=== PATIENT | male | born 1980 | race Caucasian/White ===

== ENCOUNTER 2020-05-17 08:49 | Outpatient (REF) | payer OTHER, SELFPAY ==
[2020-05-17 11:17] LABS: Hematocrit 40.5 % (42-52); Hemoglobin 13.5 g/dl (14.0-18.0); Mean Corpuscular HGB Conc 33.3 g/dl (31.0-36.0); Mean Corpuscular Hemoglobin 31.4 pg (27.0-33.0); Mean Corpuscular Volume 94.2 fL (80-98); Mean Platelet Volume 10.6 fL (9.4-12.4); Platelet Count 232 X10*3/uL (160-400); Red Cell Distribution Width 11.9 % (11.0-16.0); White Blood Count 5.1 X10*3/uL (4.8-10.8)
[2020-05-17 12:07] LABS: Folate 15.2 ng/mL (> or = 4.0); Vitamin B12 563 pg/mL (200-900)
[2020-05-17 12:11] LABS: Free T4 (Free Thyroxine) 1.17 ng/dL (0.71-1.85); Thyroid Stimulating Hormone 0.98 mIU/mL (0.32-4.0)
[2020-05-17 12:20] LABS: Alanine Aminotransferase 38 U/L (0-40); Albumin Level 4.6 g/dL (3.5-5.0); Alkaline Phosphatase 38 U/L (39-117); Anion Gap 15 (12-20); Aspartate Amino Transferase 19 U/L (5-37); Bilirubin Total 0.6 mg/dL (0.0-1.0); Blood Urea Nitrogen 17 mg/dL (9-16); Calcium 9.3 mg/dL (8.4-10.2); Carbon Dioxide 26 mmol/L (22-29); Chloride 99 mmol/L (96-108); Cholesterol 191 mg/dL; Estimated Glomerular Filt Rate > 60; Glucose Fasting 301 mg/dL (60-99); HDL Cholesterol 57 mg/dL; Iron 111 mcg/dL (45-160); LDL Cholesterol Calculated 71 mg/dl; Percent Iron Saturation 31 % (15-50); Potassium 4.8 mmol/l (3.3-5.1); Sodium 135 mmol/L (135-145); Total Iron Binding Capacity 357 mcg/dL (228-428); Total Protein 7.3 g/dL (6.5-8.0); Triglycerides 317 mg/dL; Unsaturated Iron Binding 246 ug/dL
== END 2020-05-17 08:50 | disposition home or self-care (01) ==
LOC: HO.HMGCLDS 08:49
PROVIDERS: PCP Internal Medicine; Visit Provider Internal Medicine
DX: E03.9 Hypothyroidism, unspecified (principal); E78.5 Hyperlipidemia, unspecified; I10 Essential (primary) hypertension; R73.9 Hyperglycemia, unspecified; D64.9 Anemia, unspecified
CPT/HCPCS: 36415; 80053; 80061; 82607; 82746; 83540; 84439; 84443; 85027

== ENCOUNTER 2020-10-05 08:38 | Outpatient (REF) | payer OTHER, SELFPAY ==
--- NOTE | ~2020-10-05 | US_ITS ---
EXAMINATION: US THYROID CLINICAL INFORMATION: Unspecified hypothyroidism. Patient states previous thyroid surgery 20 years ago. COMPARISON: None TECHNIQUE: Linear transducer grayscale and color Doppler examination with attention to the region of the thyroid. FINDINGS: SIZE: Measurements of the thyroid lobes and nodules are given in sagittal, anteroposterior and transverse dimensions respectively. Right Thyroid Lobe versus residual tissue: 0.8 x 0.6 x 0.7 cm, volume 0.2 mL. Parenchyma: The gland echotexture is homogeneous. Thyroid vascularity is normal. Left Thyroid Lobe: 2.3 x 0.9 x 0.9 cm, volume 1.2 mL. Parenchyma: The gland echotexture is homogeneous. Thyroid vascularity is normal. Isthmus: Not seen. Estimated total number of nodules greater than or equal to 1 cm: 0. NODES: There is a right level 2 submandibular lymph node. This is enlarged measuring 2 cm in transverse dimension. This demonstrates normal ultrasound morphology and flow. US/US thyroid IMPRESSION: Question post right thyroidectomy with small amount of residual thyroid tissue seen in the surgical bed. Small left lobe. Enlarged right level 2 submandibular lymph node.
--- NOTE | ~2020-10-05 | XR_ITS ---
EXAMINATION: XR KNEE, LEFT CLINICAL INFORMATION: Pain COMPARISON: None TECHNIQUE: Four views of the left knee. FINDINGS: Bones and soft tissues are normal. No fracture or joint effusion. Alignment is anatomic. Joint spaces are well maintained. No abnormal soft tissue calcification. XR/XR knee LT 4V IMPRESSION: Normal left knee.
== END 2020-10-05 08:39 | disposition home or self-care (01) ==
LOC: HO.HMGCX 08:38
PROVIDERS: PCP Internal Medicine; Visit Provider Internal Medicine
DX: E03.9 Hypothyroidism, unspecified (principal)
CPT/HCPCS: 73564; 76536

== ENCOUNTER 2020-12-22 07:35 | Outpatient (REF) | payer OTHER, SELFPAY ==
[2020-12-22 11:35] LABS: MANUAL DIFF FLAG NO
[2020-12-22 11:48] LABS: Basophils Percent Auto 0.4 % (0-2); Eosinophils Absolute Auto 0.1 X10*3/uL (0.0-0.4); Hemoglobin 12.7 g/dl (14.0-18.0); Imm Gran Abs Auto 0.01 X10*3/uL (0.00-0.03); Imm Gran Pct Auto 0.2 % (0.0-0.4); Lymphocytes Absolute Auto 1.5 X10*3/uL (1.2-4.9); Lymphocytes Percent Auto 32.8 % (20-40); Mean Corpuscular HGB Conc 32.6 g/dl (31.0-36.0); Mean Corpuscular Hemoglobin 30.6 pg (27.0-33.0); Mean Platelet Volume 10.3 fL (9.4-12.4); Monocytes Absolute Auto 0.4 X10*3/uL (0.1-1.2); Monocytes Percent Auto 8.5 % (2-11); Neutrophils Absolute Auto 2.5 X10*3/uL (2.0-8.3); Neutrophils Percent Auto 56.1 % (45-73); Platelet Count 208 X10*3/uL (160-400); Red Blood Count 4.15 X10*6/uL (4.60-5.80); Red Cell Distribution Width 12.3 % (11.0-16.0); White Blood Count 4.5 X10*3/uL (4.8-10.8)
[2020-12-22 12:00] LABS: Estimated Average Glucose 146 mg/dL; Hemoglobin A1c % 6.7 %
[2020-12-22 12:19] LABS: TSH reflex Free T4 1.48 uIU/mL (0.32-4.0)
[2020-12-22 12:23] LABS: Alanine Aminotransferase 42 U/L (0-40); Albumin Level 4.5 g/dL (3.5-5.0); Alkaline Phosphatase 37 U/L (39-117); Anion Gap 16 (12-20); Aspartate Amino Transferase 28 U/L (5-37); Bilirubin Total 0.8 mg/dL (0.0-1.0); Blood Urea Nitrogen 19 mg/dL (9-16); Calcium 9.6 mg/dL (8.4-10.2); Carbon Dioxide 26 mmol/L (22-29); Chloride 102 mmol/L (96-108); Cholesterol 202 mg/dL; Estimated Glomerular Filt Rate > 60; Glucose Fasting 167 mg/dL (60-99); HDL Cholesterol 67 mg/dL; LDL Cholesterol Calculated 90 mg/dl; Potassium 4.6 mmol/L (3.3-5.1); Sodium 139 mmol/L (135-145); Total Protein 7.2 g/dL (6.5-8.0); Triglycerides 225 mg/dL
[2020-12-23 17:51] LABS: Thyroid Peroxidase Antibodies 21 IU/mL (<9)
== END 2020-12-22 07:36 | disposition home or self-care (01) ==
LOC: HO.HMGCLDS 07:35
PROVIDERS: PCP Internal Medicine; Visit Provider Internal Medicine
DX: D64.9 Anemia, unspecified (principal); R73.9 Hyperglycemia, unspecified; E03.9 Hypothyroidism, unspecified; E78.5 Hyperlipidemia, unspecified; I10 Essential (primary) hypertension
CPT/HCPCS: 36415; 80053; 80061; 83036; 84443; 85025; 86376

== ENCOUNTER 2021-03-30 08:31 | Outpatient (REF) | payer OTHER, SELFPAY ==
[2021-03-30 11:47] LABS: Estimated Average Glucose 146 mg/dL; Hemoglobin A1c % 6.7 %
[2021-03-30 11:50] LABS: Alanine Aminotransferase 28 U/L (0-40); Albumin Level 4.8 g/dL (3.5-5.0); Alkaline Phosphatase 35 U/L (39-117); Anion Gap 13 (12-20); Aspartate Amino Transferase 20 U/L (5-37); Bilirubin Total 0.8 mg/dL (0.0-1.0); Blood Urea Nitrogen 21 mg/dL (9-16); Carbon Dioxide 26 mmol/L (22-29); Chloride 103 mmol/L (96-108); Cholesterol 182 mg/dL; Estimated Glomerular Filt Rate > 60; Glucose Fasting 161 mg/dL (60-99); HDL Cholesterol 59 mg/dL; LDL Cholesterol Calculated 95 mg/dl; Potassium 4.8 mmol/L (3.3-5.1); Sodium 137 mmol/L (135-145); Total Protein 7.5 g/dL (6.5-8.0); Triglycerides 141 mg/dL
== END 2021-03-30 08:32 | disposition home or self-care (01) ==
LOC: HO.HMGCLDS 08:31
PROVIDERS: PCP Internal Medicine; Visit Provider Internal Medicine
DX: E03.9 Hypothyroidism, unspecified (principal); E11.9 Type 2 diabetes mellitus without complications; I10 Essential (primary) hypertension
CPT/HCPCS: 36415; 80053; 80061; 83036

== ENCOUNTER 2021-04-07 09:13 | Outpatient (REF) | payer OTHER, SELFPAY | END 2021-04-07 09:14 | disposition home or self-care (01) | LOC: HO.HMGCLDS 09:13 | PROVIDERS: PCP Internal Medicine; Visit Provider Internal Medicine | DX: Z20.822 Contact with and (suspected) exposure to COVID-19 (principal) | CPT/HCPCS: C9803; U0003; U0005 ==

== ENCOUNTER 2021-07-05 06:23 | Outpatient (REF) | payer OTHER, SELFPAY ==
[2021-07-05 12:04] LABS: Alanine Aminotransferase 25 U/L (0-40); Albumin Level 4.4 g/dL (3.5-5.0); Alkaline Phosphatase 33 U/L (39-117); Anion Gap 11 (12-20); Aspartate Amino Transferase 18 U/L (5-37); Bilirubin Total 0.5 mg/dL (0.0-1.0); Blood Urea Nitrogen 19 mg/dL (9-16); Calcium 9.2 mg/dL (8.4-10.2); Carbon Dioxide 27 mmol/L (22-29); Chloride 107 mmol/L (96-108); Cholesterol 151 mg/dL; Estimated Glomerular Filt Rate > 60; Glucose Fasting 146 mg/dL (60-99); HDL Cholesterol 61 mg/dL; LDL Cholesterol Calculated 56 mg/dl; Potassium 4.7 mmol/L (3.3-5.1); Sodium 140 mmol/L (135-145); Triglycerides 172 mg/dL
[2021-07-05 12:10] LABS: Estimated Average Glucose 143 mg/dL; Hemoglobin A1c % 6.6 %
[2021-07-05 12:12] LABS: TSH reflex Free T4 0.64 uIU/mL (0.32-4.0)
== END 2021-07-05 06:24 | disposition home or self-care (01) ==
LOC: HO.HMGCLDS 06:23
PROVIDERS: PCP Internal Medicine; Visit Provider Internal Medicine
DX: D64.9 Anemia, unspecified (principal); E03.9 Hypothyroidism, unspecified; E11.65 Type 2 diabetes mellitus with hyperglycemia
CPT/HCPCS: 36415; 80053; 80061; 83036; 84443

== ENCOUNTER 2021-08-03 08:43 | Emergency (ER) | payer OTHER, SELFPAY ==
--- NOTE | ~2021-08-03 | MR_ITS ---
EXAMINATION: MR KNEE WITHOUT CONTRAST, LEFT CLINICAL INFORMATION: Left knee pain, swelling, and limited range of motion. COMPARISON: Most recent left knee radiographs dated 08/03/2021. TECHNIQUE: MRI of the knee without contrast was performed using routine sequences on a high-field scanner. FINDINGS: MENISCI: Medial Meniscus: Bucket-handle tear of the medial meniscus extending from the anterior horn to the posterior root. Approximately 50% of the meniscal volume is displaced centrally. There is an oblique inner margin tear through the nondisplaced meniscal tissue. Lateral Meniscus: Intact LIGAMENTS: Cruciate: Intact. Collateral: Intact. EXTENSOR MECHANISM: Intact ARTICULAR CARTILAGE/BONE: Patellofemoral Compartment: Focal partial-thickness articular cartilage fissuring at the lateral patellar facet. Medial Compartment: Mild articular cartilage thinning at the medial aspect of the medial femoral condyle and medial tibial plateau. Tiny marginal osteophytes. Lateral Compartment: Normal. JOINT FLUID AND BURSAE: Small joint effusion and small Villalpando's cyst. Fluid within the adjacent fascial planes consistent with Villalpando's cyst leak or rupture. MR/MR knee LT wo con IMPRESSION: 1. Bucket-handle tear of the medial meniscus with approximately 50% of the meniscal volume displaced centrally. Oblique inner margin tear through the nondisplaced meniscal tissue. 2. Minimal patellofemoral and medial compartment arthrosis. 3. Small joint effusion and small Villalpando's cyst. Fluid within the fascial planes adjacent to the Villalpando's cyst consistent with leak or rupture.
--- NOTE | ~2021-08-03 | XR_ITS ---
EXAMINATION: XR KNEE, LEFT CLINICAL INFORMATION: Left knee pain COMPARISON: None TECHNIQUE: Four views of the left knee. FINDINGS: Bones and soft tissues are normal. No fracture or joint effusion. Alignment is anatomic. Joint spaces are well maintained. No abnormal soft tissue calcification. XR/XR knee LT 4V IMPRESSION: Unremarkable left knee.
[2021-08-03 08:57] VITALS: BP 171/102; PULSE 71; RESP 18; TEMP 36.6; O2SAT 98; BMI 26.9
--- NOTE | 2021-08-03 10:06 | ED.LOWEXIN ---
HPI - Extremity Injury (Lower) General Chief Complaint: Extremity Injury, Lower Stated Complaint: l knee swelling pain Time Seen by Provider: 08/03/21 09:26 Source: patient Mode of arrival: ambulatory Limitations: no limitations History of Present Illness HPI Narrative: 40-year-old male presents to ED for left knee pain. Patient states left knee pain since Sunday. Patient states he was dancing and felt pain immediately on the side of left knee. Patient states left knee pain on extension and flexion. Patient states also slight swelling of knee. Patient denies any calf pain, leg swelling, redness of knee, fever, chills, chest pain, or shortness of breath. Patient denies any wounds or pus discharge in left lower extremity. Patient denies any bluish black discoloration of toes. Related Data Home Medications Medication Instructions Recorded Confirmed multivitamin 1 tab PO DAILY 04/01/21 07/08/21 glucosamine HCl PO .daily 07/08/21 07/08/21 metformin 750 mg tablet,extended 750 mg PO DAILY 07/08/21 07/08/21 release 24 hr Previous Rx's Medication Instructions Recorded levothyroxine 175 mcg tablet 175 mcg PO DAILY #90 tab 09/29/20 simvastatin 40 mg tablet 40 mg PO DAILY #90 tab 12/14/20 flash glucose sensor (FreeStyle #6 ea 04/01/21 Molly 14 Day Sensor) blood sugar diagnostic (FreeStyle #100 ea 07/08/21 Lite Strips) naproxen 500 mg tablet 500 mg PO BID PRN 10 Days #20 tab 08/03/21 prednisone 20 mg tablet 40 mg PO DAILY 5 Days #10 tab 08/03/21 Allergies Allergy/AdvReac Type Severity Reaction Status Date / Time No Known Allergies Allergy Verified 07/08/21 07:36 [No Known Allergies*] Review of Systems Review of Systems: Only symptoms are left knee pain Yes all other systems are reviewed and are negative [facility] Past Medical History Medical History (Updated 08/03/21 @ 10:28 by Tea Fernandes MD) Anemia Annual physical exam DM type 2 (diabetes mellitus, type 2) Dyslipidemia Hyperglycemia Hypothyroidism Knee pain Left knee injury Surgical History History of tooth extraction Family History Family History Father Diabetes mellitus Mother Medical history non-contributory Brother No problems noted. Sister No problems noted. Daughter No problems noted. Daughter No problems noted. Social History Social History Housing: House Alcohol intake: current Alcohol intake frequency: a few times a month Patient Tobacco Use Status: Current everyday Tobacco user Cigarettes Per Day: 8 Years Smoked: 20 Advance Directives: No Advance Directives Information Provided: No service: No Current occupational status: employed Physical Exam Vital Signs: Vital Signs: Last Vital Signs Temp 98 F 08/03/21 08:57 Pulse 71 08/03/21 08:57 Resp 18 08/03/21 08:57 BP 171/102 H 08/03/21 08:57 Pulse Ox 98 08/03/21 08:57 BMI result Body Mass Index 26.9 Const: General: cooperative, healthy appearing, comfortable, no acute distress and well developed Orientation/consciousness: oriented to time and patient oriented x3 HENMT: Head: Yes normal to inspection, Yes No palpable skull fracture present, Yes normocephalic and No atraumatic Eyes: General: appearance normal, both eyes and all related structures Neck: Neck: Yes normal visual inspection, Yes full ROM, Yes no lymphadenopathy, Yes no meningeal signs, Yes trachea midline, Yes supple, No anterior neck swelling and No tender Chest: Chest palpation & inspection: normal inspection of the chest and normal palpation of entire chest wall Resp: Effort & Inspection: normal respiratory effort and able to speak in complete sentences Auscultation: clear to auscultation bilaterally Cardio: Jugular venous distension: no JVD Heart sounds: S1 normal heart sound present and S2 normal heart sound present GI: Inspection: Yes normal to inspection and No abdominal wall ecchymosis Palpation (GI): Soft to palpation, not firm, nontender and no guarding : General: No CVA tenderness and Yes no CVA tenderness Back/Spine/Pelvis: Back: no CVA tenderness, No CVA tenderness and No back tenderness Skin: General skin exam: no rashes or lesions noted and elasticity normal Neuro: General: oriented to time, patient oriented x3, gait normal, no meningeal signs and CN's II-XI intact bilaterally Extrem: General: Yes normal to inspection and Yes full ROM Knee images: 1. Positive for tenderness on palpation. Patient has complete range of motion of knee but with pain on flexion and extension. Negative for any erythema, warmth, deformity, ecchymosis, or coolness. Popliteal pulses intact. Pedal pulses intact. Motor/neuro/vascular exam intact. Rest of left lower extremity normal. Negative for any dipping quadriceps to indicate tear Psych: Appearance: grossly normal, well kempt and not disheveled Course Course Course Narrative: Patient sent for left knee x-ray Reevaluation(s) Reevaluation #1: Knee x-ray negative for any fracture, dislocation, or joint effusion. Patient educated he might have meniscus versus ligament injury and will need MRI from primary care provider. Patient already has his own crutches. Patient placed in Mike wrap only discharged with NSAIDs and steroids. Patient most likely hypertensive due to pain. patient negatvie for any neuro deficits or cardiac compliant. Patient informed to follow up with PCP in regards to blood pressure. Time: 10:11 MDM - Extremity Injury (Lower) MDM Narrative Medical decision making narrative: Knee sprain Discharge Plan Discharge Clinical Impression: Knee sprain Patient Disposition: Home, Self-Care Instructions: Knee Sprain (ED) Additional Instructions: you're x-rays came back normal and negative for any fracture, dislocation, or fluid in the knee. Most likely you injured a ligament versus meniscus. You need MRI by primary care for provider and there is no improvement in pain. Return to the ED for any knee swelling, redness, warmth, difficulty ambulating, fever, chills, bluish black discoloration of toes, hotness, coolness, red streaks, calf pain, chest pain, shortness of breath,or any other concerning symptoms. Prescriptions: New prednisone 20 mg tablet 40 mg PO DAILY 5 Days Qty: 10 RF: 0 naproxen 500 mg tablet 500 mg PO BID PRN (Reason: pain) 10 Days Qty: 20 RF: 0 No Action levothyroxine 175 mcg tablet 175 mcg PO DAILY Qty: 90 RF: 3 simvastatin 40 mg tablet 40 mg PO DAILY Qty: 90 RF: 3 multivitamin Tablet 1 tab PO DAILY RF: 0 (DME) FreeStyle Molly 14 Day Sensor Kit See Rx Instructions .ROUTE .MEDSUPPLY Qty: 6 RF: 3 metformin 750 mg tablet extended release 24 hr 750 mg PO DAILY RF: 0 glucosamine HCl PO .daily RF: 0 (DME) FreeStyle Lite Strips Strip See Rx Instructions .Route Qty: 100 RF: 2 Stand Alone Forms: Work/School Release Print Language: Honduran
== END 2021-08-03 10:26 | disposition home or self-care (01) ==
PROVIDERS: Emergency Provider Emergency Medicine; PCP Internal Medicine
DX: S83.92XA Sprain of unspecified site of left knee, initial encounter (principal); X50.1XXA Overexertion from prolonged static or awkward postures, initial encounter; M25.562 Pain in left knee; E11.9 Type 2 diabetes mellitus without complications; E78.5 Hyperlipidemia, unspecified; F17.200 Nicotine dependence, unspecified, uncomplicated; Y93.41 Activity, dancing; Y92.9 Unspecified place or not applicable; Y99.9 Unspecified external cause status; Z79.02 Long term (current) use of antithrombotics/antiplatelets
CPT/HCPCS: 73564; 73721; 99282; 99283; 99285

== ENCOUNTER → 2021-08-24 08:05 | Outpatient (BNVA) | payer OTHER, SELFPAY | PROVIDERS: PCP Internal Medicine; Visit Provider Physician Assistant | DX: S83.242A Other tear of medial meniscus, current injury, left knee, initial encounter (principal); M17.12 Unilateral primary osteoarthritis, left knee | CPT/HCPCS: 20610; J1020 ==

== ENCOUNTER 2021-09-07 07:48 | Outpatient (RCR) | payer OTHER, SELFPAY ==
--- NOTE | 2021-09-07 09:41 | MHC.PT.EP ---
[facility] [place] Office [place] Office [place] Office [address] [phone] F: [phone] F: [phone] F: [phone] F: [phone] Physical Therapy Plan of Care Date of Evaluation: Date of Surgery: n/a Diagnosis: L knee OA Assessment: Patient is a 41 year old R handed male who presents with s/s consistent with pain L knee OA, MRI confirms meniscal tear. He works with daily job demands including house remodeling. Patient past medical history includes pre-diabetic. Current impairments include pain, ROM, strength, activity tolerance and functional mobility. Functional limitations include decreased ability to perform weight bearing activities and kneeling. Patient is motivated with good rehab potential. Skilled PT will address impairments and functional limitations in order to achieve goals. Frequency and Duration: The patient will be seen 1x/week for 6 weeks Short Term Goals: I with HEP -2 weeks Pain with ADLs - 2/10 - 3 weeks Assisted Goals: Pain with ADLs and work -0/10 - 6 weeks Full pain free AROM - 6 weeks Strength in knees and hips 4+/5 - 6 weeks Treatment Plan: Modalities to reduce pain, spasms and effusion. Manual therapy to restore motion and function. Therapeutic exercise to improve strength and flexibility. Neuromuscular re-education for posture and balance. Therapeutic activities to return to functional activities of daily living. Electronically signed by: Castillo Diane, PT Please sign and return to therapist. Thank you for your referral.
--- NOTE | 2022-04-13 08:48 | MHC.PT.DC ---
[facility] [place] Office [place] Office [place] Office [address] Hernadez [address] [facility] [phone] F: [phone] F: [phone] F: [phone] F: [phone] Physical Therapy Discharge Report Diagnosis: L knee OA Date of Surgery: n/a Date of Evaluation: 09/07/21 Date of Discharge: 09/26/21 Treatments to Date: 1 Cancellations to Date: No Shows to Date: Discharge Status: Patient Elected to Stop Discharge Summary: Pt did not return. Patient is a 41 year old R handed male who presents with s/s consistent with pain L knee OA, MRI confirms meniscal tear. He works with daily job demands including house remodeling. Patient past medical history includes pre-diabetic. Current impairments include pain, ROM, strength, activity tolerance and functional mobility. Functional limitations include decreased ability to perform weight bearing activities and kneeling. Patient is motivated with good rehab potential. Skilled PT will address impairments and functional limitations in order to achieve goals. Electronically signed by: Castillo Diane, PT Please sign and return to therapist. Thank you for your referral.
== END 2022-04-13 08:48 | disposition home or self-care (01) ==
LOC: HO.PTCHIC 07:48
PROVIDERS: PCP Internal Medicine; Visit Provider Physician Assistant
DX: S83.242A Other tear of medial meniscus, current injury, left knee, initial encounter (principal); M17.12 Unilateral primary osteoarthritis, left knee
CPT/HCPCS: 97110; 97161

== ENCOUNTER → 2021-10-06 15:46 | Outpatient (BNVA) | payer OTHER, SELFPAY | PROVIDERS: PCP Internal Medicine; Visit Provider Orthopaedic Surgery | DX: Z13.89 Encounter for screening for other disorder (principal) ==

== ENCOUNTER 2022-01-13 07:29 | Outpatient (REF) | payer OTHER, SELFPAY ==
[2022-01-13 11:35] LABS: Alanine Aminotransferase 19 U/L (0-40); Albumin Level 4.5 g/dL (3.5-5.0); Alkaline Phosphatase 33 U/L (39-117); Anion Gap 11 (12-20); Aspartate Amino Transferase 15 U/L (5-37); Bilirubin Total 0.4 mg/dL (0.0-1.0); Blood Urea Nitrogen 21 mg/dL (9-16); Calcium 9.1 mg/dL (8.4-10.2); Carbon Dioxide 25 mmol/L (22-29); Chloride 104 mmol/L (96-108); Cholesterol 161 mg/dL; Estimated Glomerular Filt Rate > 60; Glucose Fasting 172 mg/dL (60-99); HDL Cholesterol 58 mg/dL; LDL Cholesterol Calculated 80 mg/dl; Potassium 4.4 mmol/L (3.3-5.1); Sodium 136 mmol/L (135-145); Triglycerides 115 mg/dL
[2022-01-13 12:04] LABS: Estimated Average Glucose 160 mg/dL; Hemoglobin A1c % 7.2 %
== END 2022-01-13 07:30 | disposition home or self-care (01) ==
LOC: HO.HMGCLDS 07:29
PROVIDERS: Visit Provider Internal Medicine
DX: E03.9 Hypothyroidism, unspecified (principal); E78.5 Hyperlipidemia, unspecified; I10 Essential (primary) hypertension; R73.9 Hyperglycemia, unspecified
CPT/HCPCS: 36415; 80053; 80061; 83036

== ENCOUNTER 2022-01-20 07:27 | Outpatient (REF) | payer OTHER, SELFPAY ==
[2022-01-20 11:57] LABS: Creatinine Urine 114.14 mg/dL; Microalbum/Creatinine Ratio Ur 5.2 ug/mg cr
== END 2022-01-20 07:28 | disposition home or self-care (01) ==
LOC: HO.HMGCLNP 07:27
PROVIDERS: Visit Provider Internal Medicine
DX: E11.9 Type 2 diabetes mellitus without complications (principal)
CPT/HCPCS: 82043

== ENCOUNTER 2022-06-07 07:28 | Outpatient (REF) | payer OTHER, SELFPAY ==
[2022-06-07 11:51] LABS: Estimated Average Glucose 140 mg/dL; Hemoglobin A1c % 6.5 %
[2022-06-07 12:15] LABS: Alanine Aminotransferase 21 U/L (0-40); Albumin Level 4.6 g/dL (3.5-5.0); Alkaline Phosphatase 31 U/L (39-117); Anion Gap 15 (12-20); Aspartate Amino Transferase 16 U/L (5-37); Bilirubin Total 0.6 mg/dL (0.0-1.0); Blood Urea Nitrogen 20 mg/dL (9-16); Calcium 9.7 mg/dL (8.4-10.2); Carbon Dioxide 26 mmol/L (22-29); Chloride 102 mmol/L (96-108); Cholesterol 171 mg/dL; Estimated Glomerular Filt Rate > 60; Glucose Fasting 151 mg/dL (60-99); HDL Cholesterol 66 mg/dL; LDL Cholesterol Calculated 91 mg/dl; Potassium 4.7 mmol/L (3.3-5.1); Sodium 138 mmol/L (135-145); TSH reflex Free T4 0.47 uIU/mL (0.32-4.0); Triglycerides 73 mg/dL
== END 2022-06-07 07:29 | disposition home or self-care (01) ==
LOC: HO.HMGCLDS 07:28
PROVIDERS: PCP Internal Medicine; Visit Provider Internal Medicine
DX: Z00.00 Encounter for general adult medical examination without abnormal findings (principal); E03.9 Hypothyroidism, unspecified; E11.9 Type 2 diabetes mellitus without complications
CPT/HCPCS: 36415; 80053; 80061; 83036; 84443

== ENCOUNTER 2022-06-08 09:52 | Outpatient (REF) | payer OTHER, SELFPAY ==
[2022-06-08 10:32] LABS: Creatinine Urine 135.65 mg/dL; Microalbum/Creatinine Ratio Ur 3.6 ug/mg cr
== END 2022-06-08 09:53 | disposition home or self-care (01) ==
LOC: HO.LNP 09:52
PROVIDERS: Visit Provider Internal Medicine
DX: Z00.00 Encounter for general adult medical examination without abnormal findings (principal); E03.9 Hypothyroidism, unspecified; E11.9 Type 2 diabetes mellitus without complications
CPT/HCPCS: 82043

== ENCOUNTER 2022-09-07 06:36 | Outpatient (REF) | payer OTHER, SELFPAY ==
[2022-09-07 11:47] LABS: Estimated Average Glucose 148 mg/dL; Hemoglobin A1c % 6.8 %
[2022-09-07 12:08] LABS: Alanine Aminotransferase 24 U/L (0-40); Albumin Level 4.5 g/dL (3.5-5.0); Alkaline Phosphatase 30 U/L (39-117); Anion Gap 17 (12-20); Aspartate Amino Transferase 16 U/L (5-37); Blood Urea Nitrogen 21 mg/dL (9-16); Calcium 9.2 mg/dL (8.4-10.2); Carbon Dioxide 23 mmol/L (22-29); Chloride 104 mmol/L (96-108); Cholesterol 143 mg/dL; Estimated Glomerular Filt Rate > 60; Glucose Fasting 161 mg/dL (60-99); HDL Cholesterol 65 mg/dL; LDL Cholesterol Calculated 52 mg/dl; Potassium 4.6 mmol/L (3.3-5.1); Sodium 139 mmol/L (135-145); Total Protein 6.7 g/dL (6.5-8.0); Triglycerides 132 mg/dL
== END 2022-09-07 06:37 | disposition home or self-care (01) ==
LOC: HO.HMGCLDS 06:36
PROVIDERS: PCP Internal Medicine; Visit Provider Internal Medicine
DX: E03.9 Hypothyroidism, unspecified (principal); E11.9 Type 2 diabetes mellitus without complications; E78.5 Hyperlipidemia, unspecified
CPT/HCPCS: 36415; 80053; 80061; 83036

== ENCOUNTER 2022-09-08 08:16 | Outpatient (REF) | payer OTHER, SELFPAY ==
[2022-09-08 12:42] LABS: Creatinine Urine 96.41 mg/dL; Microalbumin Urine < 5.0 mg/L
== END 2022-09-08 08:17 | disposition home or self-care (01) ==
LOC: HO.HMGCLDS 08:16
PROVIDERS: PCP Internal Medicine; Visit Provider Internal Medicine
DX: E03.9 Hypothyroidism, unspecified (principal); E11.9 Type 2 diabetes mellitus without complications; E78.5 Hyperlipidemia, unspecified
CPT/HCPCS: 82043

== ENCOUNTER 2022-09-08 09:00 | Outpatient (REF) | payer OTHER, SELFPAY ==
[2022-09-08 12:48] LABS: Insulin 5 uU/mL (2-29)
[2022-09-10 18:04] LABS: C Peptide 1.58 ng/mL (0.80-3.85)
[2022-09-20 02:53] LABS: Insulin Auto Antibody <0.4 U/mL (<0.4)
== END 2022-09-08 09:01 | disposition home or self-care (01) ==
LOC: HO.HMGCLDS 09:00
PROVIDERS: PCP Internal Medicine; Visit Provider Internal Medicine
DX: E78.5 Hyperlipidemia, unspecified (principal); E11.9 Type 2 diabetes mellitus without complications
CPT/HCPCS: 36415; 83525; 84681; 86337

== ENCOUNTER 2022-12-05 06:44 | Outpatient (REF) | payer OTHER, SELFPAY ==
[2022-12-05 11:10] LABS: MANUAL DIFF FLAG NO
[2022-12-05 11:34] LABS: Basophils Percent Auto 0.8 % (0-2); Eosinophils Absolute Auto 0.1 X10*3/uL (0.0-0.4); Eosinophils Percent Auto 2.7 % (0-4); Hematocrit 42.5 % (42.0-52.0); Imm Gran Abs Auto 0.01 X10*3/uL (0.00-0.03); Imm Gran Pct Auto 0.2 % (0.0-0.4); Lymphocytes Absolute Auto 1.7 X10*3/uL (1.2-4.9); Lymphocytes Percent Auto 33.7 % (20-40); Mean Corpuscular HGB Conc 32.9 g/dl (31.0-36.0); Mean Corpuscular Hemoglobin 30.1 pg (27.0-33.0); Mean Corpuscular Volume 91.4 fL (80.0-98.0); Mean Platelet Volume 10.2 fL (9.4-12.4); Monocytes Absolute Auto 0.5 X10*3/uL (0.1-1.2); Neutrophils Absolute Auto 2.8 x10*3/uL (2.0-8.3); Neutrophils Percent Auto 53.6 % (45-73); Platelet Count 273 X10*3/uL (160-400); Red Blood Count 4.65 X10*6/uL (4.60-5.80); Red Cell Distribution Width 12.1 % (11.0-16.0); White Blood Count 5.1 X10*3/uL (4.8-10.8)
[2022-12-05 11:47] LABS: Estimated Average Glucose 137 mg/dL; Hemoglobin A1c % 6.4 %
[2022-12-05 12:11] LABS: Alanine Aminotransferase 18 U/L (0-40); Albumin Level 4.5 g/dL (3.5-5.0); Alkaline Phosphatase 36 U/L (39-117); Anion Gap 14 (12-20); Aspartate Amino Transferase 15 U/L (5-37); Bilirubin Total 0.8 mg/dL (0.0-1.0); Blood Urea Nitrogen 23 mg/dL (9-16); Calcium 9.7 mg/dL (8.4-10.2); Carbon Dioxide 25 mmol/L (22-29); Chloride 102 mmol/L (96-108); Cholesterol 163 mg/dL; Estimated Glomerular Filt Rate > 60; Glucose Fasting 155 mg/dL (60-99); HDL Cholesterol 65 mg/dL; LDL Cholesterol Calculated 68 mg/dl; Potassium 5.1 mmol/L (3.3-5.1); Sodium 136 mmol/L (135-145); Triglycerides 154 mg/dL
== END 2022-12-05 06:45 | disposition home or self-care (01) ==
LOC: HO.HMGCLDS 06:44
PROVIDERS: PCP Internal Medicine; Visit Provider Internal Medicine
DX: E03.9 Hypothyroidism, unspecified (principal); E11.9 Type 2 diabetes mellitus without complications; E78.5 Hyperlipidemia, unspecified
CPT/HCPCS: 36415; 80053; 80061; 83036; 85025

== ENCOUNTER 2023-02-06 08:28 | Outpatient (AMB) | payer OTHER, SELFPAY ==
--- NOTE | 2023-02-06 08:35 | A.OFFVIS_ITS ---
Intake VS Expanded 02/06/23 08:48 02/07/23 13:30 Height 5 ft 7 in 5 ft 7 in Weight 154 lb 12.232 oz 155 lb BMI 24.2 24.3 Intake Visit Reasons: DM2 Allergies No Known Allergies [No Known Allergies*] Allergy (Verified 12/06/22 08:36) HPI Nutrition Presentation Details Pt presents for MNT for T2DM. Pt was referred by Dr. Fernandes, primary care physician. Pt reports gradually working on weight loss , more so in the last couple of years after DM dx about 2 yrs ago. Pt reports his was 205 lbs in 2000. Keeps physically active at work on his feet Reports working on reducing food portions and cutting out sugars from beverages. Pt expresses having fasting BG at 150-180s and reports this is most likely related to having late dinner 7-8 pm Reports not having set meals throughout the day B/L: coffee 1pm sandwich (poultry/pork, breaded fried foods), water 7-8 pm dinner meat /vegetable/potatoes , water , tea and unsweetened tea fish: once/wk fruits: 2+ (pineapple/cherries/watermelon) milk/yogurt: once/day or in shakes non starchy veg : at dinner majority of the time smoke: cig 10 + etoh: occ 2 + dx with DM at around 2020 in 2000 - was 205 lbs OQT-Pfwdmwj-St.Jeor Equation Height 5 ft 7 in Weight 155 lb Resting Metabolic Rate 1554.51 Calculated Activity Level Moderate Activity Calories Needed to Maintain Weight 2409.49 Diagnosis Nutrition problem #1 food nutri know defi As related to (etiology) #1 diagnosis As evidenced by (sign/symptom) #1 knowledge deficit of diet Monitoring/Goals Nutrition problem monitoring level of knowledge/skill Nutrition goal/outcome list 3 diab diet goals Learning/Education Readiness to learn good Most Recent Diabetes Results: Microalb/Creat Ratio TNP 09/08/22 Cholesterol 163 mg/dL 12/05/22 HDL Cholesterol 65 mg/dL 12/05/22 Triglycerides 154 mg/dL 12/05/22 Creatinine 0.80 mg/dL (0.5-1.4) 12/05/22 Blood Urea Nitrogen 23 mg/dL (9-16) H 12/05/22 Sodium 136 mmol/L (135-145) 12/05/22 Potassium 5.1 mmol/L (3.3-5.1) 12/05/22 Chloride 102 mmol/L (96-108) 12/05/22 Carbon Dioxide 25 mmol/L (22-29) 12/05/22 Calcium 9.7 mg/dL (8.4-10.2) 12/05/22 AST 15 U/L (5-37) 12/05/22 ALT 18 U/L (0-40) 12/05/22 Total Protein 7.0 g/dL (6.5-8.0) 12/05/22 Albumin 4.5 g/dL (3.5-5.0) 12/05/22 [facility] Medical History Anemia Annual physical exam DM type 2 (diabetes mellitus, type 2) Dyslipidemia Hyperglycemia Hypothyroidism Knee pain Left knee injury Medial meniscus tear Surgical History History of tooth extraction Family History Father Diabetes mellitus Mother Medical history non-contributory Brother No problems noted. Sister No problems noted. Daughter No problems noted. Daughter No problems noted. Social History Housing: House Alcohol intake: current Alcohol intake frequency: a few times a month Patient Tobacco Use Status: Current everyday Tobacco user Cigarettes Per Day: 8 Years Smoked: 20 e-Cigarette/Vaping Use: Never Used service: No Current occupational status: employed Current occupation: Rt handed Cognitive needs: No Hearing needs: No Vision needs: No Assessment & Plan Assessment & Plan (1) DM type 2 (diabetes mellitus, type 2): Code(s): E11.9 - Type 2 diabetes mellitus without complications Plan: wt: 70 kg Est kcal needs as per MSJ: 2400 (40% carb, 30% protein/fat) Est fluid needs as per 25-30 ml/d: 1760 Est prot per day as per 1 g/kg bw: 70 Recommend fiber intake : 8-10 g per day and gradually increase to 35-38 g for men or as tolerated Recommend sodium intake per day : less than 2000 mg Educated patient on: ( R = reviewed V = verbalizes understanding N/R = needs review N/A = not applicable * Food sources of carbohydrate, adequate serving sizes and its role in various health conditions: R * Differences between complex carbohydrates a simple carbohydrates, role of fiber in diet: R * Differences between types of fats and role in diet (mono on saturated fat fatty acids, saturated fatty acids, trans fats): R * Food sources of sodium in salt and healthy modifications for heart health in kidney health: R * Vitamins and minerals: R * Healthy plate method concept: R * Physical activity: Benefits a precaution: R * Hypoglycemia protocol (rule of 15): R * Dietary prevention of Hyperglycemia: R Patient Instructions: Have pre dinner snack consisting of at least 30 g carb and 2 servings of protein Reduce on portion of starch by 15 g carbs less (1/2 c potatoes/ 1/3 c rice or pasta) at dinner Coding Level of Care Code Nutr Indiv Intake (32396) Diagnoses DM type 2 (diabetes mellitus, type 2) E11.9
[2023-02-06 08:48] VITALS: BMI 24.2
[2023-02-07 13:30] VITALS: BMI 24.3
== END 2023-02-06 09:18 | disposition home or self-care (01) ==
PROVIDERS: PCP Internal Medicine; Visit Provider Dietitian, Registered
DX: E11.9 Type 2 diabetes mellitus without complications (principal)

== ENCOUNTER → 2023-02-06 08:28 | Outpatient (BNVA) | payer OTHER, SELFPAY | PROVIDERS: Visit Provider Dietitian, Registered | DX: E11.9 Type 2 diabetes mellitus without complications (principal); Z71.3 Dietary counseling and surveillance | CPT/HCPCS: 97802 ==

== ENCOUNTER 2023-04-16 07:53 | Outpatient (REF) | payer OTHER, SELFPAY ==
[2023-04-16 12:01] LABS: MANUAL DIFF FLAG NO
[2023-04-16 12:14] LABS: Estimated Average Glucose 151 mg/dL; Hemoglobin A1c % 6.9 % (<6.0)
[2023-04-16 12:16] LABS: Basophils Percent Auto 0.5 % (0-2); Eosinophils Absolute Auto 0.1 X10*3/uL (0.0-0.4); Eosinophils Percent Auto 2.2 % (0-4); Hematocrit 42.8 % (42.0-52.0); Hemoglobin 14.2 g/dl (14.0-18.0); Imm Gran Abs Auto 0.03 X10*3/uL (0.00-0.03); Imm Gran Pct Auto 0.7 % (0.0-0.4); Lymphocytes Absolute Auto 1.4 X10*3/uL (1.2-4.9); Lymphocytes Percent Auto 32.8 % (20-40); Mean Corpuscular HGB Conc 33.2 g/dl (31.0-36.0); Mean Corpuscular Hemoglobin 31.2 pg (27.0-33.0); Mean Corpuscular Volume 94.1 fL (80.0-98.0); Mean Platelet Volume 10.3 fL (9.4-12.4); Monocytes Absolute Auto 0.4 X10*3/uL (0.1-1.2); Monocytes Percent Auto 8.5 % (2-11); Neutrophils Absolute Auto 2.3 x10*3/uL (2.0-8.3); Neutrophils Percent Auto 55.3 % (45-73); Platelet Count 227 X10*3/uL (160-400); Red Blood Count 4.55 X10*6/uL (4.60-5.80); Red Cell Distribution Width 11.9 % (11.0-16.0); White Blood Count 4.1 X10*3/uL (4.8-10.8)
[2023-04-16 12:54] LABS: Alanine Aminotransferase 15 U/L (0-40); Albumin Level 4.4 g/dL (3.5-5.0); Alkaline Phosphatase 29 U/L (39-117); Anion Gap 12 (12-20); Aspartate Amino Transferase 14 U/L (5-37); Bilirubin Total 0.5 mg/dL (0.0-1.0); Blood Urea Nitrogen 17 mg/dL (9-16); Calcium 9.4 mg/dL (8.4-10.2); Carbon Dioxide 25 mmol/L (22-29); Chloride 104 mmol/L (96-108); Cholesterol 182 mg/dL (<200); Estimated Glomerular Filt Rate > 60; Glucose Fasting 164 mg/dL (60-99); HDL Cholesterol 74 mg/dL (>40); LDL Cholesterol Calculated 88 mg/dL (<100); Potassium 4.3 mmol/L (3.3-5.1); Sodium 137 mmol/L (135-145); Total Protein 6.9 g/dL (6.5-8.0); Triglycerides 103 mg/dL (<150)
[2023-04-16 13:12] LABS: TSH reflex Free T4 1.91 uIU/mL (0.32-4.0)
[2023-04-25 19:44] LABS: Insulin Auto Antibody <0.4 U/mL (<0.4)
== END 2023-04-16 07:54 | disposition home or self-care (01) ==
LOC: HO.HMGCLDS 07:53
PROVIDERS: PCP Internal Medicine; Visit Provider Internal Medicine
DX: E11.65 Type 2 diabetes mellitus with hyperglycemia (principal); E78.5 Hyperlipidemia, unspecified; E03.9 Hypothyroidism, unspecified
CPT/HCPCS: 36415; 80053; 80061; 83036; 84443; 85025; 86337

== ENCOUNTER 2023-04-17 07:34 | Outpatient (AMB) | payer OTHER, SELFPAY ==
--- NOTE | 2023-04-17 07:41 | MHC.PC.OV ---
Vital Signs 04/17/23 07:42 Height 5 ft 7 in Weight 165 lb BMI 25.8 BP 120/78 Blood Pressure Location Rt brachial Position Sitting Pulse 64 Pulse Source Pulse Oximeter Pulse Oximetry (%) 98 Oxygen Delivery Method Room Air Intake Visit Reasons: PE Allergies No Known Allergies [No Known Allergies*] Allergy (Verified 04/17/23 07:43) Medication List - Last Reconciled 04/17/23 by Tea Fernandes MD blood sugar diagnostic (FreeStyle Lite Strips) test blood sugar twice a day dapagliflozin propanediol (Farxiga) 5 mg PO DAILY flash glucose sensor (FreeStyle Molly 14 Day Sensor kit) As directed levothyroxine 175 mcg PO DAILY metformin 1,000 mg PO BID multivitamin 1 tab PO DAILY simvastatin 10 mg PO DAILY Tobacco use date assessed: 04/17/23 Dental Screening Dental Screen Date: 04/17/23 Did you have a dental visit in the last 12 months?: Yes Did you have a dental problem in the last 6 months where you did not have access to dental care?: No Was dental information given to patient?: Patient has dentist HPI PE HPI Details Patient presents for physical. He reports persistently elevated fasting blood glucose between 120-140. Patient is mainly 1 meal a day around 18:00. Usually skips lunch and has a sandwich or protein bar in the midday. Patient denies hypoglycemia. [facility] Medical History Medial meniscus tear Left knee injury DM type 2 (diabetes mellitus, type 2) Annual physical exam Knee pain Anemia Hyperglycemia Dyslipidemia Hypothyroidism Surgical History History of tooth extraction Family History Father Diabetes mellitus Mother Medical history non-contributory Brother No problems noted. Sister No problems noted. Daughter No problems noted. Daughter No problems noted. Social History Housing: House Alcohol intake: current Alcohol intake frequency: a few times a month Patient Tobacco Use Status: Current everyday Tobacco user Cigarettes Per Day: 8 Years Smoked: 20 e-Cigarette/Vaping Use: Never Used service: No Current occupational status: employed Current occupation: [employer] handed Cognitive needs: No Hearing needs: No Vision needs: No Questionnaire PHQ-9 Over the last 2 weeks, how often have you been bothered by any of the following problems? 1. Little interest or pleasure in doing things: not at all 2. Feeling down, depressed, or hopeless: not at all 3. Trouble falling or staying asleep, or sleeping too much: not at all 4. Feeling tired or having little energy: not at all 5. Poor appetite or overeating: not at all 6. Feeling bad about yourself - or that you are a failure or have let yourself or your family down: not at all 7. Trouble concentrating on things, such as reading the newspaper or watching television: not at all 8. Moving or speaking so slowly that other people could have noticed. Or the opposite - being so fidgety or restless that you have been moving around a lot more than usual: not at all 9. Thoughts that you would be better off or of hurting yourself in some way: not at all Total score: 0 Depression Screening Interpretation: Negative Source: Developed by Drs. Se Hsieh, Whitley Hernandez, Berny Shelton and colleagues, with an educational christy from [email or web address]. Thrive Questionnaire Date Thrive assessed: 04/17/23 I am a: Patient What is your living situation today?: I have a steady place to live Within the past 12 months, did the food you bought not last and you didn't have the money to get more?: Never true Within the past 12 months, did you worry whether your food would run out before you got money to buy more?: Never true Do you have trouble paying for medicines?: No Do you have trouble getting transportation to medical appointments?: No Do you have trouble paying your heating and electricity bill?: No Do you have trouble taking care of your child, family member or friend?: No Do you have trouble with day-to-day activities such as bathing, preparing meals, shopping, managing finances, etc.?: No Are you currently unemployed and looking for a job?: No Are you interested in more education?: No Please select the resources that you would like help with: None Currently or been in a relationship where the following occur: no concerns reported DICKSON-7 AMB Questionnaire DICKSON-7 Date DICKSON - 7 assessed: 04/17/23 Feeling nervous, anxious, or on edge: 0 = Not at all Not being able to stop or control worryin = Not at all Worrying too much about different things: 0 = Not at all Trouble relaxin = Not at all Being so restless that it is hard to sit still: 0 = Not at all Becoming easily annoyed or irritable: 0 = Not at all Feeling afraid as if something awful might happen: 0 = Not at all Total DICKSON-7 score (0-4 normal; 5-9 mild; 10-14 moderate; 15-21 severe): 0 Source: Developed by Drs. Se Hsieh, Whitley Hernandez, eBrny Shelton and colleagues, with an educational christy from [email or web address]. Review of Systems Const All systems reviewed & are unremarkable except as noted in HPI and below Reports no additional complaints Eyes Reports no additional complaints ENT Reports no additional complaints Card Reports no additional complaints Resp Reports no additional complaints GI Reports no additional complaints Reports no additional complaints Physical exam (Primary Care) Vital Signs: Last Vital Signs Pulse 64 04/17/23 07:42 BP 120/78 04/17/23 07:42 Pulse Ox 98 04/17/23 07:42 Oxygen Delivery Method Room Air 04/17/23 07:42 BMI result Body Mass Index 25.8 Tobacco/Smoking Status: Tobacco use Status Tobacco use date assessed 04/17/23 04/17/23 07:45 Patient Tobacco Use Status Current everyday Tobacco 04/17/23 07:45 e-Cigarette/Vaping Use Never Used 04/17/23 07:45 PHQ-9: PHQ-9 Score PHQ-9: Total score 0 04/17/23 08:45 Depression Screening Interpretation: Negative Thrive Assessment: Date of Thrive Assessment Date Thrive assessed 04/17/23 04/17/23 08:23 Currently or been in a relationship where the following occur: no concerns reported Const General: no acute distress HENMT Ears: hearing grossly normal bilaterally General nose exam: Normal external nose present Face and sinus: Yes normal facial exam Throat: Yes posterior oropharynx normal Eyes General: appearance normal, both eyes and all related structures Neck Neck: Yes no lymphadenopathy and Yes supple Resp Effort & Inspection: normal respiratory effort Auscultation: clear to auscultation bilaterally Cardio Rhythm: regular rhythm Heart sounds: S1 normal heart sound present and S2 normal heart sound present GI Inspection: Yes normal to inspection Palpation (GI): Soft to palpation Percussion: Yes normal to percussion Auscultation: normal bowel sounds Extrem Other: Monofilament foot exam intact bilaterally General: Yes no clubbing, cyanosis or edema Assessment and Plan Assessment & Plan (1) Heart murmur: Code(s): R01.1 - Cardiac murmur, unspecified Plan: check Echo (2) DM type 2 (diabetes mellitus, type 2): Comment: Trulicity caused weight loss and nausea Code(s): E11.9 - Type 2 diabetes mellitus without complications Plan: A1c is 6.9, ADA diet eating regular meals increasing protein and unsaturated fat intake discussed. Farxiga will be increased to 10 mg a day and patient will continue metformin. He will follow-up in 4 months with a fasting labs before (3) Annual physical exam: Code(s): Z00.00 - Encounter for general adult medical examination without abnormal findings Plan: Well-balanced diet regular physical activity discussed with the patient. Colonoscopy was discussed but patient would like to postpone until next year (4) Hypothyroidism: Comment: s/p partial thyroidectomy for thyroid nodule in 20's Code(s): E03.9 - Hypothyroidism, unspecified Plan: Continue levothyroxine Orders: Orders CA echo transthoracic complete Today E11.9 - Type 2 diabetes mellitus without complications, R01.1 - Cardiac murmur, unspecified, R73.9 - Hyperglycemia, unspecified Hemoglobin A1c 3 Months E11.9 - Type 2 diabetes mellitus without complications, R73.9 - Hyperglycemia, unspecified Lipid Panel 3 Months E11.9 - Type 2 diabetes mellitus without complications, R73.9 - Hyperglycemia, unspecified Comprehensive [place]. Panel Fast 3 Months E11.9 - Type 2 diabetes mellitus without complications, R73.9 - Hyperglycemia, unspecified Microalbumin, Random (w Creat) 3 Months E11.9 - Type 2 diabetes mellitus without complications, R73.9 - Hyperglycemia, unspecified Medications: New dapagliflozin propanediol (Farxiga) 10 mg PO DAILY 90 tabs 2RF Discontinued dapagliflozin propanediol (Farxiga) Discontinued Reason: Doctor's Order 5 mg PO DAILY 90 tabs 0RF Coding Level of Care Code Est Pt Prev Care 40-64y(39688) Diagnoses Heart murmur R01.1 DM type 2 (diabetes mellitus, type 2) E11.9 Annual physical exam Z00.00 Hypothyroidism E03.9
[2023-04-17 07:42] VITALS: BP 120/78; PULSE 64; O2SAT 98; BMI 25.8
== END 2023-04-17 08:48 | disposition home or self-care (01) ==
PROVIDERS: PCP Internal Medicine; Visit Provider Internal Medicine
DX: R01.1 Cardiac murmur, unspecified (principal); E11.9 Type 2 diabetes mellitus without complications; Z00.00 Encounter for general adult medical examination without abnormal findings; E03.9 Hypothyroidism, unspecified
CPT/HCPCS: 99396

== ENCOUNTER → 2023-05-16 08:19 | Outpatient (REF) | payer OTHER, SELFPAY ==
--- NOTE | 2023-05-16 08:27 | CA_ITS ---
Transthoracic Echocardiogram Patient (Last, First, Middle): Justin Theodore, Gender: Male Date of : 1980 Age: 42 Procedure Date: 05/16/2023 Procedure Type: Transthoracic Echocardiogram Location: OP Height: 172.72 cm Weight: 72.58 kg BSA: 1.86 m2 Heart Rate: bpm BP: 125 / 88 mmHg Community Relations Officer: HARPREET Referring MD: Tea Fernandes MD [facility]: Venkata Goodrich MD Symptoms: R01.1 - Cardiac murmur, unspecified Study Quality: Good ECG Rhythm: Sinus Conclusions: - Essentially normal study Findings Left Ventricle Normal left ventricular size, thickness, and systolic function. The visually estimated ejection fraction is between 60-65%. Diastolic function is normal for age. Peak GLS is -20.1%, within normal limits. Right Ventricle Normal right ventricular cavity size and systolic function. Atria Both atria are normal in size. Interatrial shunt cannot be excluded. Aortic Valve Normal aortic valve structure and function. There is no aortic valve stenosis. There is no aortic valve regurgitation. Mitral Valve Normal mitral valve structure and function. There is trace mitral valve regurgitation. There is no mitral valve stenosis. Pulmonic Valve The pulmonic valve is likely normal. There is mild pulmonic valve regurgitation. Tricuspid Valve Normal tricuspid valve structure. There is trace tricuspid valve regurgitation. The right ventricular systolic pressure is normal. The right ventricular systolic pressure is 28 mmHg. Normal right atrial pressure. There is no evidence of pulmonary hypertension. Great Vessels All visible segments of the aorta are normal in size. The pulmonary artery was not well visualized. Venous The inferior vena cava is normal in size and collapses greater than 50% with inspiration. Pericardium/Pleural There is no evidence of pericardial effusion. Prior Study Comparison no previous study in the last 5 years for comparison Measurements 2D Linear Measurements IVSd: 1.10 0.6-0.9/0.6-1.0 cm LVIDd: 4.70 3.9-5.3/4.2-5.9 cm LVIDd Index: 2.53 2.4-3.2/2.2-3.1 cm/m2 LVIDs: 2.80 2.0-3.6 cm LVPWd: 0.90 0.7-1.1 cm LA Diam: 3.50 2.7-3.8/3.0-4.0 cm LAIDs Index: 1.88 1.5-2.3 cm/m2 LV Mass: 204.82 67-162/88-224 g LV Mass Index: 110.12 43-95/49-115 g/m2 LVOT Diam: 2.30 3.0+(-)1.3 cm 2D Systolic Function EF 4C: 62.40 >55% EF 2C: 68.10 >55% EF BiP: 65.20 >55% Mitral Valve MV Pk E: 0.93 MV PK A: 0.58 MV Decel Time: 278.00 E/A: 1.60 E'Lateral: 14.30 E'Medial: 8.27 E/E' Med: 11.20 E/E' Lat: 6.50 PHT: 82.00 MVA PHT: 2.68 Decel [place]: 3.34 Aortic Valve AoV Pk [place]: 1.19 AoV Mn [place]: 0.85 AoV VTI: 0.31 AoV Pk Grad: 6.00 Aov Mn Grad: 3.00 EDNA Cont.VTI: 2.49 LVOT LVOT Pk [place]: 0.81 LVOT Mn [place]: 0.53 LVOT VTI: 0.18 LVOT Pk Grad: 3.00 LVOT Mn Grad: 1.00 LVOT Diam: 2.30 LVOT Area: 4.15 Diastolic Function MV Pk E: 0.93 MV Pk A: 0.58 E/A: 1.60 E'Medial: 8.27 E/E' Med: 11.20 E' Laterial: 14.30 E/E' Lat: 6.50 Right Ventricle TAPSE (mm): 20.70 TVS' Kwaku: 10.20 Tricuspid Valve TR Pk [place]: 1.81 TR Pk Grad: 13.00 RA Press: 15.00 RVSP: 28.00 Great Vessels Aorta Sinus of Valsalva: 4.00 2.0-3.[address] [place]: 2.70 1.7-3.4 cm Ao Asc: 3.50 2.1-3.4 cm Updated in Other Vendor System with Status of Final Venkata Goodrich MD electronically signed on 05/16/2023 3:43:19 PM with status of Final
== END ==
LOC: HO.CARD 08:19
PROVIDERS: PCP Internal Medicine; Visit Provider Internal Medicine
DX: R01.1 Cardiac murmur, unspecified (principal); E11.65 Type 2 diabetes mellitus with hyperglycemia
CPT/HCPCS: 93306

== ENCOUNTER → 2023-05-16 08:27 | Outpatient (BNV) | payer OTHER, SELFPAY | PROVIDERS: PCP Internal Medicine; Visit Provider Internal Medicine Cardiovascular Disease | DX: I37.1 Nonrheumatic pulmonary valve insufficiency (principal); R01.1 Cardiac murmur, unspecified | CPT/HCPCS: 93306 ==

== ENCOUNTER 2023-07-25 06:51 | Outpatient (REF) | payer OTHER, SELFPAY ==
[2023-07-25 12:29] LABS: Estimated Average Glucose 183 mg/dL
[2023-07-25 13:00] LABS: Alanine Aminotransferase 22 U/L (0-40); Albumin Level 4.6 g/dL (3.5-5.0); Alkaline Phosphatase 33 U/L (39-117); Anion Gap 10 (12-20); Aspartate Amino Transferase 19 U/L (5-37); Bilirubin Total 0.3 mg/dL (0.0-1.0); Blood Urea Nitrogen 23 mg/dL (9-16); Calcium 9.6 mg/dL (8.4-10.2); Carbon Dioxide 25 mmol/L (22-29); Chloride 107 mmol/L (96-108); Cholesterol 174 mg/dL (<200); Estimated Glomerular Filt Rate > 60; Glucose Fasting 145 mg/dL (60-99); HDL Cholesterol 54 mg/dL (>40); LDL Cholesterol Calculated 48 mg/dL (<100); Potassium 4.6 mmol/L (3.3-5.1); Sodium 137 mmol/L (135-145); Total Protein 7.1 g/dL (6.5-8.0); Triglycerides 360 mg/dL (<150)
== END 2023-07-25 06:52 | disposition home or self-care (01) ==
LOC: HO.HMGCLDS 06:51
PROVIDERS: PCP Internal Medicine; Visit Provider Internal Medicine
DX: E11.65 Type 2 diabetes mellitus with hyperglycemia (principal)
CPT/HCPCS: 36415; 80053; 80061; 83036

== ENCOUNTER 2023-07-26 09:53 | Outpatient (AMB) | payer OTHER, SELFPAY ==
[2023-07-26 09:55] VITALS: BP 120/76; PULSE 80; O2SAT 99; BMI 24.3
--- NOTE | 2023-07-26 09:55 | MHC.PC.OV ---
Vital Signs 07/26/23 09:55 Height 5 ft 7 in Weight 155 lb BMI 24.3 BP 120/76 Blood Pressure Location Rt brachial Position Sitting Pulse 80 Pulse Source Pulse Oximeter Pulse Oximetry (%) 99 Oxygen Delivery Method Room Air Intake Visit Reasons: 3 month follow up Intake Note: Pt is here today for 3 months follow up visit. Allergies dulaglutide [From [facility]] Adverse Reaction (Verified 10/23/23 07:45) weight loss Medication List - Last Reconciled 07/26/23 by Tea Fernandes MD blood sugar diagnostic (FreeStyle Lite Strips) test blood sugar twice a day dapagliflozin propanediol (Farxiga) 10 mg PO DAILY flash glucose sensor (FreeStyle Molly 14 Day Sensor kit) As directed insulin degludec (Tresiba FlexTouch U-100 insulin) 6 units (0.06 mL) subcut DAILY levothyroxine 175 mcg PO DAILY metformin 500 mg PO BID multivitamin 1 tab PO DAILY simvastatin 10 mg PO DAILY Tobacco use date assessed: 07/26/23 Dental Screening Dental Screen Date: 07/26/23 Did you have a dental visit in the last 12 months?: Yes Did you have a dental problem in the last 6 months where you did not have access to dental care?: No Was dental information given to patient?: Patient has dentist HPI 3 month follow up HPI Details Patient presents for the follow-up of type 2 diabetes. She lost 10 lb after starting Farxiga on stopped about a month ago but noticed increased fasting blood glucose to over 200. Patient has been eating 2 meals a day and generally avoiding simple carbohydrates. Patient denies hypoglycemia episodes and is physically active working in construction. [facility] Medical History Medial meniscus tear Left knee injury DM type 2 (diabetes mellitus, type 2) Annual physical exam Knee pain Anemia Dyslipidemia Hypothyroidism Surgical History History of tooth extraction Family History Father Diabetes mellitus Mother Medical history non-contributory Brother No problems noted. Sister No problems noted. Daughter No problems noted. Daughter No problems noted. Social History Housing: House Alcohol intake: current Alcohol intake frequency: a few times a month Patient Tobacco Use Status: Current everyday Tobacco user Cigarettes Per Day: 8 Years Smoked: 20 e-Cigarette/Vaping Use: Never Used service: No Current occupational status: employed Current occupation: [employer] handed Cognitive needs: No Hearing needs: No Vision needs: No Questionnaire PHQ-9 Over the last 2 weeks, how often have you been bothered by any of the following problems? 1. Little interest or pleasure in doing things: not at all 2. Feeling down, depressed, or hopeless: not at all 3. Trouble falling or staying asleep, or sleeping too much: not at all 4. Feeling tired or having little energy: not at all 5. Poor appetite or overeating: not at all 6. Feeling bad about yourself - or that you are a failure or have let yourself or your family down: not at all 7. Trouble concentrating on things, such as reading the newspaper or watching television: not at all 8. Moving or speaking so slowly that other people could have noticed. Or the opposite - being so fidgety or restless that you have been moving around a lot more than usual: not at all 9. Thoughts that you would be better off or of hurting yourself in some way: not at all Total score: 0 Depression Screening Interpretation: Negative Depression Screening Done: Yes Source: Developed by Drs. Se Hsieh, Whitley Hernandez, Berny Shelton and colleagues, with an educational christy from [employer]. Thrive Questionnaire Date Thrive assessed: 07/26/23 I am a: Patient What is your living situation today?: I have a steady place to live Within the past 12 months, did the food you bought not last and you didn't have the money to get more?: Never true Within the past 12 months, did you worry whether your food would run out before you got money to buy more?: Never true Do you have trouble paying for medicines?: No Do you have trouble getting transportation to medical appointments?: No Do you have trouble paying your heating and electricity bill?: No Do you have trouble taking care of your child, family member or friend?: No Do you have trouble with day-to-day activities such as bathing, preparing meals, shopping, managing finances, etc.?: No Are you currently unemployed and looking for a job?: No Are you interested in more education?: No Please select the resources that you would like help with: None Currently or been in a relationship where the following occur: no concerns reported AUDIT C Alcohol Use Questionnaire (AUDIT-C) 1. How often do you have a drink containing alcohol?: Monthly or less 2. How many drinks containing alcohol do you have on a typical day when you are drinking?: 1 or 2 3. How often do you have six or more drinks on one occasion?: Never Total Score: 1 DICKSON-7 AMB Questionnaire DICKSON-7 Date DICKSON - 7 assessed: 07/26/23 Feeling nervous, anxious, or on edge: 0 = Not at all Not being able to stop or control worryin = Not at all Worrying too much about different things: 0 = Not at all Trouble relaxin = Not at all Being so restless that it is hard to sit still: 0 = Not at all Becoming easily annoyed or irritable: 0 = Not at all Feeling afraid as if something awful might happen: 0 = Not at all Total DICKSON-7 score (0-4 normal; 5-9 mild; 10-14 moderate; 15-21 severe): 0 Source: Developed by Drs. Se Hsieh, Whitley Hernandez, Berny Shelton and colleagues, with an educational christy from [employer]. Review of Systems Const All systems reviewed & are unremarkable except as noted in HPI and below Reports no additional complaints Eyes Reports no additional complaints ENT Reports no additional complaints Card Reports no additional complaints Resp Reports no additional complaints GI Reports no additional complaints Reports no additional complaints Musc Reports no additional complaints Physical exam (Primary Care) Vital Signs: Last Vital Signs Pulse 80 07/26/23 09:55 BP 120/76 07/26/23 09:55 Pulse Ox 99 07/26/23 09:55 Oxygen Delivery Method Room Air 07/26/23 09:55 BMI result Body Mass Index 24.3 Tobacco/Smoking Status: Tobacco use Status Tobacco use date assessed 07/26/23 07/26/23 10:00 Patient Tobacco Use Status Current everyday Tobacco 07/26/23 10:00 e-Cigarette/Vaping Use Never Used 07/26/23 10:00 PHQ-9: PHQ-9 Score PHQ-9: Total score 0 07/26/23 12:38 Depression Screening Interpretation: Negative Thrive Assessment: Date of Thrive Assessment Date Thrive assessed 07/26/23 07/26/23 12:38 Currently or been in a relationship where the following occur: no concerns reported Const General: no acute distress HENMT Head: Yes normal to inspection Eyes General: appearance normal, both eyes and all related structures Resp Effort & Inspection: normal respiratory effort Auscultation: clear to auscultation bilaterally Cardio Rhythm: regular rhythm Heart sounds: S1 normal heart sound present and S2 normal heart sound present Assessment and Plan Assessment & Plan (1) DM type 2 (diabetes mellitus, type 2): Comment: Trulicity caused weight loss and nausea Code(s): E11.9 - Type 2 diabetes mellitus without complications Plan: A1c is high at 8.0, ADA diet regular physical activity discussed with the patient. 6 units of Tresiba will be started in the morning. Patient was advised to decrease metformin to 500 mg twice a day and continue Farxiga. He was advised to monitor glucose at least 3 times a day. Patient will follow-up in 1 month (2) Hypothyroidism: Comment: s/p partial thyroidectomy for thyroid nodule in ' Code(s): E03.9 - Hypothyroidism, unspecified Plan: Continue levothyroxine (3) Dyslipidemia: Code(s): E78.5 - Hyperlipidemia, unspecified Plan: cont statin Medications: New insulin degludec (Tresiba FlexTouch U-100 insulin) 6 units (0.06 mL) subcut DAILY 15 mL 3RF metformin 500 mg PO BID 180 tabs 0RF FreeStyle Molly 3 Sensor (blood-glucose sensor) 1 TID 2 ea 3RF NS BD Ultra-Fine Cleo Pen Needle (pen needle, diabetic) 1 qd 100 ea 1RF NS Discontinued flash glucose sensor Discontinued Reason: Doctor's Order As directed 6 ea 3RF metformin Discontinued Reason: Doctor's Order 1,000 mg PO BID 180 tabs 2RF Coding Level of Care Code Est Pt Level 4 (93055) Diagnoses DM type 2 (diabetes mellitus, type 2) E11.9 Hypothyroidism E03.9 Dyslipidemia E78.5
== END 2023-07-26 16:24 | disposition home or self-care (01) ==
PROVIDERS: PCP Internal Medicine; Visit Provider Internal Medicine
DX: E11.9 Type 2 diabetes mellitus without complications (principal); E03.9 Hypothyroidism, unspecified; E78.5 Hyperlipidemia, unspecified
CPT/HCPCS: 99214

== ENCOUNTER 2023-07-26 13:28 | Outpatient (REF) | payer OTHER, SELFPAY | END 2023-07-26 13:29 | disposition home or self-care (01) | LOC: HO.HMGCLNP 13:28 | PROVIDERS: Visit Provider Internal Medicine | DX: E11.9 Type 2 diabetes mellitus without complications (principal); E78.5 Hyperlipidemia, unspecified | CPT/HCPCS: 82043; 82570 ==

== ENCOUNTER 2023-09-11 07:47 | Outpatient (AMB) | payer OTHER, SELFPAY ==
--- NOTE | 2023-09-11 07:49 | MHC.PC.OV ---
Vital Signs 09/11/23 07:50 Height 5 ft 7 in Weight 157 lb BMI 24.6 BP 114/76 Blood Pressure Location Lt brachial Position Sitting Pulse 74 Pulse Source Pulse Oximeter Pulse Oximetry (%) 95 Oxygen Delivery Method Room Air Intake Visit Reasons: 1 Month follow up Intake Note: Pt is here today for 1 month follow up visit. Allergies dulaglutide [From [facility]] Adverse Reaction (Verified 09/11/23 07:52) weight loss Medication List - Last Reconciled 09/11/23 by Tea Fernandes MD BD Ultra-Fine Mini Pen Needle (pen needle, diabetic) As directed to inject insulin once a day NS BD Ultra-Fine Cleo Pen Needle (pen needle, diabetic) As directed to inject insulin once a day NS blood sugar diagnostic (FreeStyle Lite Strips) test blood sugar twice a day blood-glucose sensor ([employer] G7 Sensor device) As directed dapagliflozin propanediol (Farxiga) 10 mg PO DAILY FreeStyle Molly 3 Sensor (blood-glucose sensor) 1 TID NS Lantus Solostar U-100 Insulin (insulin glargine) 14 units (0.14 mL) subcut QPM NS levothyroxine 175 mcg PO DAILY metformin 500 mg PO BID multivitamin 1 tab PO DAILY simvastatin 10 mg PO DAILY Tobacco use date assessed: 07/26/23 Dental Screening Dental Screen Date: 09/11/23 Did you have a dental visit in the last 12 months?: Yes Did you have a dental problem in the last 6 months where you did not have access to dental care?: No Was dental information given to patient?: Patient has dentist HPI 1 Month follow up HPI Details Patient presents for the follow-up of type 2 diabetes. Patient reports improved glucose readings between 100-150 occasionally higher in the morning. He has been taking 10 units of Lantus and denies hypoglycemia. Patient has been compliant with [facility] Medical History Medial meniscus tear Left knee injury DM type 2 (diabetes mellitus, type 2) Annual physical exam Knee pain Anemia Dyslipidemia Hypothyroidism Surgical History History of tooth extraction Family History Father Diabetes mellitus Mother Medical history non-contributory Brother No problems noted. Sister No problems noted. Daughter No problems noted. Daughter No problems noted. Social History Housing: House Alcohol intake: current Alcohol intake frequency: a few times a month Patient Tobacco Use Status: Current everyday Tobacco user Cigarettes Per Day: 8 Years Smoked: 20 e-Cigarette/Vaping Use: Never Used service: No Current occupational status: employed Current occupation: [employer]t handed Cognitive needs: No Hearing needs: No Vision needs: No Questionnaire Thrive Questionnaire Date Thrive assessed: 07/26/23 AUDIT C Alcohol Use Questionnaire (AUDIT-C) 1. How often do you have a drink containing alcohol?: Monthly or less 2. How many drinks containing alcohol do you have on a typical day when you are drinking?: 1 or 2 3. How often do you have six or more drinks on one occasion?: Never Total Score: 1 DICKSON-7 AMB Questionnaire DICKSON-7 Date DICKSON - 7 assessed: 07/26/23 Source: Developed by Drs. Se Hsieh, Whitley Hernandez, Berny Shelton and colleagues, with an educational christy from [employer]. Review of Systems Const All systems reviewed & are unremarkable except as noted in HPI and below Reports no additional complaints Eyes Reports no additional complaints ENT Reports no additional complaints Card Reports no additional complaints Resp Reports no additional complaints Physical exam (Primary Care) Vital Signs: Last Vital Signs Pulse 74 09/11/23 07:50 BP 114/76 09/11/23 07:50 Pulse Ox 95 09/11/23 07:50 Oxygen Delivery Method Room Air 09/11/23 07:50 BMI result Body Mass Index 24.6 Tobacco/Smoking Status: Tobacco use Status Tobacco use date assessed 07/26/23 09/11/23 07:50 Patient Tobacco Use Status Current everyday Tobacco 09/11/23 07:50 e-Cigarette/Vaping Use Never Used 09/11/23 07:50 Thrive Assessment: Date of Thrive Assessment Date Thrive assessed 07/26/23 09/11/23 07:50 Const General: no acute distress HENMT Mouth: Normal oral and palatal mucosa present Throat: Yes posterior oropharynx normal Neck Neck: Yes no lymphadenopathy and Yes supple Resp Effort & Inspection: normal respiratory effort Auscultation: clear to auscultation bilaterally Cardio Rhythm: regular rhythm Heart sounds: S1 normal heart sound present and S2 normal heart sound present Assessment and Plan Assessment & Plan (1) DM type 2 (diabetes mellitus, type 2): Comment: Trulicity caused weight loss and nausea Code(s): E11.9 - Type 2 diabetes mellitus without complications Plan: Increase Lantus to 14 units continue metformin and Farxiga. Follow-up in 6 weeks with a fasting labs before. (2) Hypothyroidism: Comment: s/p partial thyroidectomy for thyroid nodule in 20's Code(s): E03.9 - Hypothyroidism, unspecified Plan: Continue levothyroxine (3) Dyslipidemia: Code(s): E78.5 - Hyperlipidemia, unspecified Plan: Continue simvastatin Orders: Orders Hemoglobin A1c 6 Weeks E03.9 - Hypothyroidism, unspecified, E11.9 - Type 2 diabetes mellitus without complications, E78.5 - Hyperlipidemia, unspecified, R73.9 - Hyperglycemia, unspecified TSH reflex Free T4 6 Weeks E03.9 - Hypothyroidism, unspecified, R73.9 - Hyperglycemia, unspecified Comprehensive [place]. Panel Fast 6 Weeks E03.9 - Hypothyroidism, unspecified, E11.9 - Type 2 diabetes mellitus without complications, E78.5 - Hyperlipidemia, unspecified, R73.9 - Hyperglycemia, unspecified Complete Blood Count Auto Diff 6 Weeks E03.9 - Hypothyroidism, unspecified, E11.9 - Type 2 diabetes mellitus without complications, E78.5 - Hyperlipidemia, unspecified, R73.9 - Hyperglycemia, unspecified Microalbumin, Random (w Creat) 6 Weeks E03.9 - Hypothyroidism, unspecified, E11.9 - Type 2 diabetes mellitus without complications, E78.5 - Hyperlipidemia, unspecified, R73.9 - Hyperglycemia, unspecified Lipid Panel 6 Weeks E03.9 - Hypothyroidism, unspecified, E11.9 - Type 2 diabetes mellitus without complications, E78.5 - Hyperlipidemia, unspecified, R73.9 - Hyperglycemia, unspecified Medications: Changed From Lantus Solostar U-100 Insulin (insulin glargine) 6 units (0.06 mL) subcut QPM 15 mL 4RF NS To Lantus Solostar U-100 Insulin (insulin glargine) 14 units (0.14 mL) subcut QPM 15 mL 4RF NS Coding Level of Care Code Est Pt Level 4 (70404) Diagnoses DM type 2 (diabetes mellitus, type 2) E11.9 Hypothyroidism E03.9 Dyslipidemia E78.5
[2023-09-11 07:50] VITALS: BP 114/76; PULSE 74; O2SAT 95; BMI 24.6
== END 2023-09-11 08:54 | disposition home or self-care (01) ==
PROVIDERS: PCP Internal Medicine; Visit Provider Internal Medicine
DX: E11.9 Type 2 diabetes mellitus without complications (principal); E03.9 Hypothyroidism, unspecified; E78.5 Hyperlipidemia, unspecified
CPT/HCPCS: 99214

== ENCOUNTER 2023-10-22 07:55 | Outpatient (REF) | payer OTHER, SELFPAY ==
[2023-10-22 10:14] LABS: MANUAL DIFF FLAG NO
[2023-10-22 10:26] LABS: Estimated Average Glucose 146 mg/dL; Hemoglobin A1c % 6.7 % (<6.0)
[2023-10-22 10:29] LABS: Basophils Absolute Auto 0.1 X10*3/uL (0.0-0.2); Basophils Percent Auto 1.2 % (0-2); Eosinophils Absolute Auto 0.1 X10*3/uL (0.0-0.4); Hematocrit 42.8 % (42.0-52.0); Hemoglobin 14.2 g/dl (14.0-18.0); Imm Gran Abs Auto 0.01 X10*3/uL (0.00-0.03); Imm Gran Pct Auto 0.2 % (0.0-0.4); Lymphocytes Percent Auto 50.1 % (20-40); Mean Corpuscular HGB Conc 33.2 g/dl (31.0-36.0); Mean Corpuscular Hemoglobin 30.7 pg (27.0-33.0); Mean Corpuscular Volume 92.6 fL (80.0-98.0); Monocytes Absolute Auto 0.4 X10*3/uL (0.1-1.2); Monocytes Percent Auto 9.5 % (2-11); Neutrophils Absolute Auto 1.4 x10*3/uL (2.0-8.3); Platelet Count 239 X10*3/uL (160-400); Red Blood Count 4.62 X10*6/uL (4.60-5.80); Red Cell Distribution Width 12.3 % (11.0-16.0)
[2023-10-22 10:49] LABS: Alanine Aminotransferase 35 U/L (0-40); Albumin Level 4.4 g/dL (3.5-5.0); Alkaline Phosphatase 35 U/L (39-117); Anion Gap 10 (12-20); Aspartate Amino Transferase 25 U/L (5-37); Bilirubin Total 0.5 mg/dL (0.0-1.0); Blood Urea Nitrogen 23 mg/dL (9-16); Calcium 9.4 mg/dL (8.4-10.2); Carbon Dioxide 24 mmol/L (22-29); Chloride 110 mmol/L (96-108); Cholesterol 182 mg/dL (<200); Estimated Glomerular Filt Rate > 60; Glucose Fasting 135 mg/dL (60-99); HDL Cholesterol 81 mg/dL (>40); LDL Cholesterol Calculated 90 mg/dL (<100); Potassium 4.2 mmol/L (3.3-5.1); Sodium 140 mmol/L (135-145); Triglycerides 56 mg/dL (<150)
[2023-10-22 10:53] LABS: TSH reflex Free T4 0.94 uIU/mL (0.32-4.0)
== END 2023-10-22 07:56 | disposition home or self-care (01) ==
LOC: HO.HMGCLDS 07:55
PROVIDERS: PCP Internal Medicine; Visit Provider Internal Medicine
DX: E11.65 Type 2 diabetes mellitus with hyperglycemia (principal); E03.9 Hypothyroidism, unspecified; E78.5 Hyperlipidemia, unspecified
CPT/HCPCS: 36415; 80053; 80061; 83036; 84443; 85025

== ENCOUNTER 2023-10-23 07:39 | Outpatient (AMB) | payer OTHER, SELFPAY ==
--- NOTE | 2023-10-23 07:43 | A.OFFPC_ITS ---
Vital Signs 10/23/23 07:45 Weight 156 lb BP 122/82 Blood Pressure Location Rt brachial Position Sitting Pulse 68 Pulse Source Pulse Oximeter Pulse Oximetry (%) 99 Oxygen Delivery Method Room Air Intake Visit Reasons: 6 weeks follow up DM Intake Note: Patient here for diabetes f/u. Allergies [facility] [[facility]] Adverse Reaction (Verified 10/23/23 07:45) weight loss Medication List - Last Reconciled 10/23/23 by Tea Fernandes MD BD Ultra-Fine Mini Pen Needle (pen needle, diabetic) As directed to inject insulin once a day NS BD Ultra-Fine Cleo Pen Needle (pen needle, diabetic) As directed to inject insulin once a day NS blood sugar diagnostic (FreeStyle Lite Strips) test blood sugar twice a day blood-glucose sensor ([employer] G7 Sensor device) As directed dapagliflozin propanediol (Farxiga) 10 mg PO DAILY FreeStyle Molly 3 Sensor (blood-glucose sensor) 1 TID NS Lantus Solostar U-100 Insulin (insulin glargine) 14 units (0.14 mL) subcut QPM NS levothyroxine 175 mcg PO DAILY metformin 500 mg PO BID multivitamin 1 tab PO DAILY simvastatin 10 mg PO DAILY Tobacco use date assessed: 07/26/23 Dental Screening Dental Screen Date: 09/11/23 HPI 6 weeks follow up DM HPI Details Patient presents for the follow-up of type 2 diabetes better controlled on current regimen. Patient reports fasting glucose between 120-150 and 2 hours after dinner around 160. He denies hypoglycemia. Hyperlipidemia and hypothyroidism stable on current medications. [facility] Medical History Medial meniscus tear Left knee injury DM type 2 (diabetes mellitus, type 2) Annual physical exam Knee pain Anemia Dyslipidemia Hypothyroidism Surgical History History of tooth extraction Family History Father Diabetes mellitus Mother Medical history non-contributory Brother No problems noted. Sister No problems noted. Daughter No problems noted. Daughter No problems noted. Social History Housing: House Alcohol intake: current Alcohol intake frequency: a few times a month Patient Tobacco Use Status: Current everyday Tobacco user Cigarettes Per Day: 8 Years Smoked: 20 e-Cigarette/Vaping Use: Never Used service: No Current occupational status: employed Current occupation: [employer] handed Cognitive needs: No Hearing needs: No Vision needs: No Questionnaire Thrive Questionnaire Date Thrive assessed: 07/26/23 DICKSON-7 AMB Questionnaire DICKSON-7 Date DICKSON - 7 assessed: 07/26/23 Source: Developed by Drs. Se Hsieh, Whitley Hernandez, Berny Shelton and colleagues, with an educational christy from [employer]. Review of Systems Const All systems reviewed & are unremarkable except as noted in HPI and below Reports no additional complaints Eyes Reports no additional complaints ENT Reports no additional complaints Card Reports no additional complaints Resp Reports no additional complaints GI Reports no additional complaints Reports no additional complaints Physical exam (Primary Care) Vital Signs: Last Vital Signs Pulse 68 10/23/23 07:45 BP 122/82 10/23/23 07:45 Pulse Ox 99 10/23/23 07:45 Oxygen Delivery Method Room Air 10/23/23 07:45 Tobacco/Smoking Status: Tobacco use Status Tobacco use date assessed 07/26/23 10/23/23 07:43 Patient Tobacco Use Status Current everyday Tobacco 10/23/23 07:43 e-Cigarette/Vaping Use Never Used 10/23/23 07:43 Thrive Assessment: Date of Thrive Assessment Date Thrive assessed 07/26/23 10/23/23 07:43 Const General: no acute distress HENMT Head: Yes normal to inspection Mouth: Normal oral and palatal mucosa present Resp Effort & Inspection: normal respiratory effort Auscultation: clear to auscultation bilaterally Cardio Rhythm: regular rhythm Heart sounds: S1 normal heart sound present and S2 normal heart sound present GI Inspection: Yes normal to inspection Palpation (GI): Soft to palpation Percussion: Yes normal to percussion Auscultation: normal bowel sounds Assessment and Plan Assessment & Plan (1) DM type 2 (diabetes mellitus, type 2): Comment: Trulicity caused weight loss and nausea Code(s): E11.9 - Type 2 diabetes mellitus without complications Plan: A1c is down to 6.7 from 8%, ADA diet regular physical activity discussed with the patient. He will increase Lantus from 14 to 18 units to improve over control. Patient will continue metformin and Farxiga. Follow-up in 3 months with a fasting labs before (2) Hypothyroidism: Comment: s/p partial thyroidectomy for thyroid nodule in 20's Code(s): E03.9 - Hypothyroidism, unspecified Plan: Continue Levothyroxine (3) Dyslipidemia: Code(s): E78.5 - Hyperlipidemia, unspecified Plan: Continue simvastatin and low-cholesterol diet Orders: Orders Lipid Panel 3 Months E03.9 - Hypothyroidism, unspecified, E11.9 - Type 2 diab etes mellitus without complications, E78.5 - Hyperlipidemia, unspecified Comprehensive [place]. Panel Fast 3 Months E03.9 - Hypothyroidism, unspecified, E11.9 - Type 2 diabetes mellitus without complications, E78.5 - Hyperlipidemia, unspecified Hemoglobin A1c 3 Months E03.9 - Hypothyroidism, unspecified, E11.9 - Type 2 diabetes mellitus without complications, E78.5 - Hyperlipidemia, unspecified Complete Blood Count Auto Diff 3 Months E03.9 - Hypothyroidism, unspecified, E11.9 - Type 2 diabetes mellitus without complications, E78.5 - Hyperlipidemia, unspecified Microalbumin, Random (w Creat) 3 Months E03.9 - Hypothyroidism, unspecified, E11.9 - Type 2 diabetes mellitus without complications, E78.5 - Hyperlipidemia, unspecified Medications: Changed From Lantus Solostar U-100 Insulin (insulin glargine) 14 units (0.14 mL) subcut QPM 15 mL 4RF NS To Lantus Solostar U-100 Insulin (insulin glargine) 18 units (0.18 mL) subcut QPM 15 mL 4RF NS Coding Level of Care Code Est Pt Level 4 (09976) Diagnoses DM type 2 (diabetes mellitus, type 2) E11.9 Hypothyroidism E03.9 Dyslipidemia E78.5
[2023-10-23 07:45] VITALS: BP 122/82; PULSE 68; O2SAT 99
== END 2023-10-23 10:45 | disposition home or self-care (01) ==
PROVIDERS: PCP Internal Medicine; Visit Provider Internal Medicine
DX: E11.9 Type 2 diabetes mellitus without complications (principal); E03.9 Hypothyroidism, unspecified; E78.5 Hyperlipidemia, unspecified
CPT/HCPCS: 99214

== ENCOUNTER 2024-01-28 07:35 | Outpatient (REF) | payer OTHER, SELFPAY ==
[2024-01-28 10:16] LABS: MANUAL DIFF FLAG NO
[2024-01-28 10:23] LABS: Basophils Percent Auto 0.6 % (0-2); Eosinophils Absolute Auto 0.2 X10*3/uL (0.0-0.4); Hematocrit 43.5 % (42.0-52.0); Hemoglobin 14.4 g/dl (14.0-18.0); Imm Gran Abs Auto 0.01 X10*3/uL (0.00-0.03); Imm Gran Pct Auto 0.2 % (0.0-0.4); Lymphocytes Absolute Auto 1.5 X10*3/uL (1.2-4.9); Lymphocytes Percent Auto 30.4 % (20-40); Mean Corpuscular HGB Conc 33.1 g/dl (31.0-36.0); Mean Corpuscular Hemoglobin 31.4 pg (27.0-33.0); Mean Corpuscular Volume 94.8 fL (80.0-98.0); Mean Platelet Volume 10.3 fL (9.4-12.4); Monocytes Absolute Auto 0.4 X10*3/uL (0.1-1.2); Neutrophils Absolute Auto 2.9 x10*3/uL (2.0-8.3); Neutrophils Percent Auto 57.8 % (45-73); Platelet Count 209 X10*3/uL (160-400); Red Blood Count 4.59 X10*6/uL (4.60-5.80); Red Cell Distribution Width 12.4 % (11.0-16.0)
[2024-01-28 10:31] LABS: Estimated Average Glucose 137 mg/dL; Hemoglobin A1c % 6.4 % (<6.0)
[2024-01-28 10:45] LABS: Alanine Aminotransferase 18 U/L (0-40); Albumin Level 4.5 g/dL (3.5-5.0); Alkaline Phosphatase 30 U/L (39-117); Anion Gap 12 (12-20); Aspartate Amino Transferase 16 U/L (5-37); Bilirubin Total 0.7 mg/dL (0.0-1.0); Blood Urea Nitrogen 31 mg/dL (9-16); Calcium 8.9 mg/dL (8.4-10.2); Carbon Dioxide 25 mmol/L (22-29); Chloride 106 mmol/L (96-108); Cholesterol 178 mg/dL (<200); Estimated Glomerular Filt Rate > 60; Glucose Fasting 172 mg/dL (60-99); HDL Cholesterol 69 mg/dL (>40); LDL Cholesterol Calculated 70 mg/dL (<100); Potassium 4.5 mmol/L (3.3-5.1); Sodium 138 mmol/L (135-145); Triglycerides 197 mg/dL (<150)
== END 2024-01-28 07:36 | disposition home or self-care (01) ==
LOC: HO.HMGCLDS 07:35
PROVIDERS: PCP Internal Medicine; Visit Provider Internal Medicine
DX: E11.9 Type 2 diabetes mellitus without complications (principal); E03.9 Hypothyroidism, unspecified; E78.5 Hyperlipidemia, unspecified
CPT/HCPCS: 36415; 80053; 80061; 83036; 85025

== ENCOUNTER 2024-01-29 08:02 | Outpatient (AMB) | payer OTHER, SELFPAY ==
[2024-01-29 08:09] VITALS: BP 108/74; PULSE 87; O2SAT 97; BMI 25.7
--- NOTE | 2024-01-29 08:09 | A.OFFPC_ITS ---
Vital Signs 01/29/24 08:09 Height 5 ft 7 in Weight 164 lb BMI 25.7 BP 108/74 Blood Pressure Location Rt brachial Position Sitting Pulse 87 Pulse Source Pulse Oximeter Pulse Oximetry (%) 97 Oxygen Delivery Method Room Air Intake Visit Reasons: Follow up DM Intake Note: Pt is here today for a follow up visit on DM. Allergies dulaglutide [From [facility]] Adverse Reaction (Verified 01/29/24 08:13) weight loss Medication List - Last Reconciled 01/29/24 by Tea Fernandes MD BD Ultra-Fine Mini Pen Needle (pen needle, diabetic) As directed to inject insulin once a day NS BD Ultra-Fine Cleo Pen Needle (pen needle, diabetic) As directed to inject insulin once a day NS blood sugar diagnostic (FreeStyle Lite Strips) test blood sugar twice a day blood-glucose sensor ([employer] G7 Sensor device) As directed, change every 10 days dapagliflozin propanediol (Farxiga) 10 mg PO DAILY FreeStyle Molly 3 Sensor (blood-glucose sensor) 1 TID NS Lantus Solostar U-100 Insulin (insulin glargine) 18 units (0.18 mL) subcut QPM NS levothyroxine 175 mcg PO DAILY metformin 500 mg PO BID multivitamin 1 tab PO DAILY simvastatin 10 mg PO DAILY Tobacco use date assessed: 01/29/24 Dental Screening Dental Screen Date: 09/11/23 [facility] Medical History Medial meniscus tear Left knee injury DM type 2 (diabetes mellitus, type 2) Annual physical exam Knee pain Anemia Dyslipidemia Hypothyroidism Surgical History History of tooth extraction Family History Father Diabetes mellitus Mother Medical history non-contributory Brother No problems noted. Sister No problems noted. Daughter No problems noted. Daughter No problems noted. Social History Housing: House Alcohol intake: current Alcohol intake frequency: a few times a month Patient Tobacco Use Status: Current everyday Tobacco user Cigarettes Per Day: 8 Years Smoked: 20 Packs per year/per ci.00 e-Cigarette/Vaping Use: Never Used [employer] service: No Current occupational status: employed Current occupation: [employer]t handed Cognitive needs: No Hearing needs: No Vision needs: No Questionnaire Thrive Questionnaire Date Thrive assessed: 07/26/23 DICKSON-7 AMB Questionnaire DICKSON-7 Date DICKSON - 7 assessed: 07/26/23 Source: Developed by Drs. Se Hsieh, Whitley Hernandez, Berny Shelton and colleagues, with an educational christy from [employer]. Review of Systems Const All systems reviewed & are unremarkable except as noted in HPI and below Eyes Reports no additional complaints ENT Reports no additional complaints Card Reports no additional complaints Resp Reports no additional complaints GI Reports no additional complaints Reports no additional complaints Physical exam (Primary Care) Vital Signs: Last Vital Signs Pulse 87 01/29/24 08:09 BP 108/74 01/29/24 08:09 Pulse Ox 97 01/29/24 08:09 Oxygen Delivery Method Room Air 01/29/24 08:09 BMI result Body Mass Index 25.7 Tobacco/Smoking Status: Tobacco use Status Tobacco use date assessed 01/29/24 01/29/24 08:14 Patient Tobacco Use Status Current everyday Tobacco 01/29/24 08:14 e-Cigarette/Vaping Use Never Used 01/29/24 08:14 Thrive Assessment: Date of Thrive Assessment Date Thrive assessed 07/26/23 01/29/24 08:14 Const General: no acute distress HENMT Head: Yes normal to inspection Face and sinus: Yes normal facial exam Eyes General: appearance normal, both eyes and all related structures Neck Neck: Yes supple Resp Effort & Inspection: normal respiratory effort Auscultation: clear to auscultation bilaterally Cardio Rhythm: regular rhythm Heart sounds: S1 normal heart sound present and S2 normal heart sound present GI Inspection: Yes normal to inspection Palpation (GI): Soft to palpation Percussion: Yes normal to percussion Auscultation: normal bowel sounds Assessment and Plan Assessment & Plan (1) Hypothyroidism: Comment: s/p partial thyroidectomy for thyroid nodule in 20's Code(s): E03.9 - Hypothyroidism, unspecified Plan: cont Levothyroxine (2) Dyslipidemia: Code(s): E78.5 - Hyperlipidemia, unspecified Plan: Patient will stop simvastatin continue low-cholesterol diet and check lipid profile in 3 months (3) DM type 2 (diabetes mellitus, type 2): Comment: Trulicity caused weight loss and nausea Code(s): E11.9 - Type 2 diabetes mellitus without complications Plan: A1c is 6.4, ADA diet regular exercise continue current medications discussed with the patient. Return in 3 months for physical Orders: Orders Lipid Panel 3 Months E03.9 - Hypothyroidism, unspecified, E11.9 - Type 2 diabetes mellitus without complications, E78.5 - Hyperlipidemia, unspecified Microalbumin, Random (w Creat) 3 Months E03.9 - Hypothyroidism, unspecified, E11.9 - Type 2 diabetes mellitus without complications, E78.5 - Hyperlipidemia, unspecified TSH reflex Free T4 3 Months E03.9 - Hypothyroidism, unspecified Comprehensive [place]. Panel 3 Months E03.9 - Hypothyroidism, unspecified, E11.9 - Type 2 diabetes mellitus without complications, E78.5 - Hyperlipidemia, unspecified Hemoglobin A1c 3 Months E03.9 - Hypothyroidism, unspecified, E11.9 - Type 2 diabetes mellitus without complications, E78.5 - Hyperlipidemia, unspecified Complete Blood Count Auto Diff 3 Months E03.9 - Hypothyroidism, unspecified, E11.9 - Type 2 diabetes mellitus without complications, E78.5 - Hyperlipidemia, unspecified Medications: Refilled BD Ultra-Fine Cleo Pen Needle (pen needle, diabetic) As directed to inject insulin once a day 100 ea 3RF NS E11.9 - Type 2 diabetes mellitus without complications Discontinued BD Ultra-Fine Mini Pen Needle (pen needle, diabetic) Discontinued Reason: Doctor's Order As directed to inject insulin once a day 100 ea 1RF NS E11.9 - Type 2 diabetes mellitus without complications Coding Level of Care Code Est Pt Level 4 (67382) Diagnoses Hypothyroidism E03.9 Dyslipidemia E78.5 DM type 2 (diabetes mellitus, type 2) E11.9
== END 2024-01-29 08:46 | disposition home or self-care (01) ==
LOC: HO.HMGC 08:02
PROVIDERS: PCP Internal Medicine; Visit Provider Internal Medicine
DX: E03.9 Hypothyroidism, unspecified (principal); E78.5 Hyperlipidemia, unspecified; E11.9 Type 2 diabetes mellitus without complications
CPT/HCPCS: 99214

== ENCOUNTER 2024-04-23 06:20 | Outpatient (REF) | payer OTHER, SELFPAY ==
[2024-04-23 10:05] LABS: MANUAL DIFF FLAG NO
[2024-04-23 10:08] LABS: Basophils Percent Auto 0.6 % (0-2); Eosinophils Absolute Auto 0.2 X10*3/uL (0.0-0.4); Eosinophils Percent Auto 3.1 % (0-4); Hematocrit 42.8 % (42.0-52.0); Imm Gran Abs Auto 0.01 X10*3/uL (0.00-0.03); Imm Gran Pct Auto 0.2 % (0.0-0.4); Lymphocytes Absolute Auto 1.5 X10*3/uL (1.2-4.9); Lymphocytes Percent Auto 28.9 % (20-40); Mean Corpuscular HGB Conc 32.7 g/dl (31.0-36.0); Mean Corpuscular Hemoglobin 30.8 pg (27.0-33.0); Mean Corpuscular Volume 94.1 fL (80.0-98.0); Monocytes Absolute Auto 0.4 X10*3/uL (0.1-1.2); Neutrophils Absolute Auto 3.1 x10*3/uL (2.0-8.3); Neutrophils Percent Auto 59.2 % (45-73); Platelet Count 219 X10*3/uL (160-400); Red Blood Count 4.55 X10*6/uL (4.60-5.80); Red Cell Distribution Width 12.7 % (11.0-16.0); White Blood Count 5.2 X10*3/uL (4.8-10.8)
[2024-04-23 10:26] LABS: Estimated Average Glucose 140 mg/dL; Hemoglobin A1C 167.5623 umol/L; Hemoglobin A1c % 6.5 % (<6.0)
[2024-04-23 10:39] LABS: Alanine Aminotransferase 16 U/L (0-40); Albumin Level 4.3 g/dL (3.5-5.0); Alkaline Phosphatase 29 U/L (39-117); Anion Gap 12 (12-20); Aspartate Amino Transferase 16 U/L (5-37); Bilirubin Total 0.6 mg/dL (0.0-1.0); Blood Urea Nitrogen 22 mg/dL (9-16); Calcium 9.3 mg/dL (8.4-10.2); Carbon Dioxide 26 mmol/L (22-29); Chloride 105 mmol/L (96-108); Cholesterol 229 mg/dL (<200); Estimated Glomerular Filt Rate > 60; Glucose Random 147 mg/dL (60-115); HDL Cholesterol 78 mg/dL (>40); LDL Cholesterol Calculated 130 mg/dL (<100); Potassium 4.1 mmol/L (3.3-5.1); Sodium 139 mmol/L (135-145); Total Protein 6.8 g/dL (6.5-8.0); Triglycerides 108 mg/dL (<150)
[2024-04-23 10:41] LABS: TSH reflex Free T4 1.98 uIU/mL (0.32-4.0)
== END 2024-04-23 06:21 | disposition home or self-care (01) ==
LOC: HO.HMGCLDS 06:20
PROVIDERS: PCP Internal Medicine; Visit Provider Internal Medicine
DX: E03.9 Hypothyroidism, unspecified (principal); E11.9 Type 2 diabetes mellitus without complications; E78.5 Hyperlipidemia, unspecified
CPT/HCPCS: 36415; 80053; 80061; 83036; 84443; 85025

== ENCOUNTER 2024-04-24 08:30 | Outpatient (AMB) | payer OTHER, SELFPAY ==
[2024-04-24 08:34] VITALS: BP 106/68; PULSE 77; O2SAT 95; BMI 25.8
--- NOTE | 2024-04-24 08:34 | MHC.PC.OV ---
Vital Signs 04/24/24 08:34 Height 5 ft 7 in Weight 165 lb BMI 25.8 BP 106/68 Blood Pressure Location Rt brachial Position Sitting Pulse 77 Pulse Source Pulse Oximeter Pulse Oximetry (%) 95 Oxygen Delivery Method Room Air Intake Visit Reasons: Annual PE Intake Note: Pt is here today for PE. [facility] Adverse Reaction (Verified 04/24/24 08:56) weight loss Medication List - Last Reconciled 04/24/24 by Tea Fernandes MD BD Ultra-Fine Cleo Pen Needle (pen needle, diabetic) As directed to inject insulin once a day NS blood sugar diagnostic (FreeStyle Lite Strips) test blood sugar twice a day blood-glucose sensor (Enigmatec G7 Sensor device) As directed, change every 10 days dapagliflozin propanediol (Farxiga) 10 mg PO DAILY FreeStyle Molly 3 Sensor (blood-glucose sensor) 1 TID NS Lantus Solostar U-100 Insulin (insulin glargine) 18 units (0.18 mL) subcut QPM NS levothyroxine 175 mcg PO DAILY metformin 500 mg PO BID multivitamin 1 tab PO DAILY simvastatin 10 mg PO DAILY Tobacco use date assessed: 01/29/24 Dental Screening Dental Screen Date: 04/24/24 Did you have a dental visit in the last 12 months?: Yes Did you have a dental problem in the last 6 months where you did not have access to dental care?: No Was dental information given to patient?: Patient has dentist HPI Annual PE HPI Details Pt presents for PE. [facility] [place] Medical History (Updated 04/24/24 @ 10:11 by Tea Fernandes MD) Medial meniscus tear Left knee injury DM type 2 (diabetes mellitus, type 2) Annual physical exam Knee pain Dyslipidemia Hypothyroidism Surgical History History of tooth extraction Family History Father Diabetes mellitus Mother Medical history non-contributory Brother No problems noted. Sister No problems noted. Daughter No problems noted. Daughter No problems noted. Social History Housing: House Alcohol intake: current Alcohol intake frequency: a few times a month Patient Tobacco Use Status: Current everyday Tobacco user Cigarettes Per Day: 8 Years Smoked: 20 e-Cigarette/Vaping Use: Never Used service: No Current occupational status: employed Current occupation: [employer] handed Cognitive needs: No Hearing needs: No Vision needs: No Questionnaire PHQ-9 Over the last 2 weeks, how often have you been bothered by any of the following problems? 1. Little interest or pleasure in doing things: not at all 2. Feeling down, depressed, or hopeless: not at all 3. Trouble falling or staying asleep, or sleeping too much: not at all 4. Feeling tired or having little energy: not at all 5. Poor appetite or overeating: not at all 6. Feeling bad about yourself - or that you are a failure or have let yourself or your family down: not at all 7. Trouble concentrating on things, such as reading the newspaper or watching television: not at all 8. Moving or speaking so slowly that other people could have noticed. Or the opposite - being so fidgety or restless that you have been moving around a lot more than usual: not at all 9. Thoughts that you would be better off or of hurting yourself in some way: not at all Total score: 0 Depression Screening Interpretation: Negative Depression Screening Done: Yes 49437 - PHQ-9 Billing: Yes Source: Developed by Drs. Se Hsieh, Whitley Hernandez, Berny Shelotn and colleagues, with an educational christy from [employer]. Thrive Questionnaire Date Thrive assessed: 04/24/24 I am a: Patient What is your living situation today?: I have a steady place to live Within the past 12 months, did the food you bought not last and you didn't have the money to get more?: I choose not to answer this question Within the past 12 months, did you worry whether your food would run out before you got money to buy more?: I choose not to answer this question Do you have trouble paying for medicines?: No Do you have trouble getting transportation to medical appointments?: No Do you have trouble paying your heating and electricity bill?: No Do you have trouble taking care of your child, family member or friend?: No Do you have trouble with day-to-day activities such as bathing, preparing meals, shopping, managing finances, etc.?: No Are you currently unemployed and looking for a job?: No Are you interested in more education?: No Please select the resources that you would like help with: None Currently or been in a relationship where the following occur: I choose not to answer THRIVE Score: 0 AUDIT C Alcohol Use Questionnaire (AUDIT-C) 1. How often do you have a drink containing alcohol?: 2-4 times a month 2. How many drinks containing alcohol do you have on a typical day when you are drinking?: 1 or 2 3. How often do you have six or more drinks on one occasion?: Never Total Score: 2 DICKSON-7 AMB Questionnaire DICKSON-7 Date DICKSON - 7 assessed: 04/24/24 Feeling nervous, anxious, or on edge: 0 = Not at all Not being able to stop or control worryin = Not at all Worrying too much about different things: 0 = Not at all Trouble relaxin = Not at all Being so restless that it is hard to sit still: 0 = Not at all Becoming easily annoyed or irritable: 0 = Not at all Feeling afraid as if something awful might happen: 0 = Not at all Total DICKSON-7 score (0-4 normal; 5-9 mild; 10-14 moderate; 15-21 severe): 0 Source: Developed by Drs. Se Hsieh, Whitley Hernandez, Berny Shelton and colleagues, with an educational christy from [employer]. DICKSON-7 Assessment Billing DICKSON-7 Assessment Tool: DICKSON-7 Assessment 45623 Review of Systems Const All systems reviewed & are unremarkable except as noted in HPI and below Eyes Reports no additional complaints ENT Reports no additional complaints Card Reports no additional complaints Resp Reports no additional complaints GI Reports no additional complaints Reports no additional complaints Musc Reports no additional complaints Physical exam (Primary Care) Vital Signs: Last Vital Signs Pulse 77 04/24/24 08:34 BP 106/68 04/24/24 08:34 Pulse Ox 95 04/24/24 08:34 Oxygen Delivery Method Room Air 04/24/24 08:34 BMI result Body Mass Index 25.8 Tobacco/Smoking Status: Tobacco use Status Tobacco use date assessed 01/29/24 04/24/24 08:36 Patient Tobacco Use Status Current everyday Tobacco 04/24/24 08:36 e-Cigarette/Vaping Use Never Used 04/24/24 08:36 PHQ-9: PHQ-9 Score PHQ-9: Total score 0 04/24/24 09:00 Depression Screening Interpretation: Negative Thrive Assessment: Date of Thrive Assessment Date Thrive assessed 04/24/24 04/24/24 08:36 Currently or been in a relationship where the following occur: I choose not to answer Const General: no acute distress HENMT Head: Yes normal to inspection Ears: hearing grossly normal bilaterally General nose exam: Normal external nose present Throat: Yes posterior oropharynx normal Eyes General: appearance normal, both eyes and all related structures Neck Neck: Yes no lymphadenopathy and Yes supple Resp Effort & Inspection: normal respiratory effort Auscultation: clear to auscultation bilaterally Cardio Rhythm: regular rhythm Heart sounds: S1 normal heart sound present and S2 normal heart sound present GI Inspection: Yes normal to inspection Palpation (GI): Soft to palpation Percussion: Yes normal to percussion Auscultation: normal bowel sounds Extrem Other: Diabetic foot exam skin is intact monofilament and vibration sensation intact bilaterally General: Yes no clubbing, cyanosis or edema Coding Level of Care Code Est Pt Prev Care 40-64y(53299) Diagnoses Annual physical exam Z00.00 DM type 2 (diabetes mellitus, type 2) E11.9 Hypothyroidism E03.9 Dyslipidemia E78.5 Additional Codes DICKSON-7 Assessment Billing - DICKSON-7 Assessment Tool: DICKSON-7 Assessment [id number] ([id number]) Assessment & Plan Assessment & Plan (1) Annual physical exam: Code(s): Z00.00 - Encounter for general adult medical examination without abnormal findings Category: Medical Plan: Well-balanced diet regular physical activity discussed with the patient referred to GI for colonoscopy (2) DM type 2 (diabetes mellitus, type 2): Comment: Trulicity caused weight loss and nausea Code(s): E11.9 - Type 2 diabetes mellitus without complications Category: Medical Plan: A1c is 6.5, ADA diet increase exercise discussed with the patient , continue current medications and follow-up in 4 months with a fasting labs before (3) Hypothyroidism: Comment: s/p partial thyroidectomy for thyroid nodule in 20's Code(s): E03.9 - Hypothyroidism, unspecified Category: Medical Plan: Continue Levothyroxine (4) Dyslipidemia: Code(s): E78.5 - Hyperlipidemia, unspecified Category: Medical Plan: Restart simvastatin Orders: Orders Hemoglobin A1c 4 Months E03.9 - Hypothyroidism, unspecified, E11.9 - Type 2 diabetes mellitus without complications, E78.5 - Hyperlipidemia, unspecified, Z00.00 - Encounter for general adult medical examination without abnormal findings Comprehensive [place]. Panel Fast 4 Months E03.9 - Hypothyroidism, unspecified, E11.9 - Type 2 diabetes mellitus without complications, E78.5 - Hyperlipidemia, unspecified, Z00.00 - Encounter for general adult medical examination without abnormal findings Lipid Panel 4 Months E03.9 - Hypothyroidism, unspecified, E11.9 - Type 2 diabetes mellitus without complications, E78.5 - Hyperlipidemia, unspecified, Z00.00 - Encounter for general adult medical examination without abnormal findings Complete Blood Count Auto Diff 4 Months E03.9 - Hypothyroidism, unspecified, E11.9 - Type 2 diabetes mellitus without complications, E78.5 - Hyperlipidemia, unspecified, Z00.00 - Encounter for general adult medical examination without abnormal findings Microalbumin, Random (w Creat) 4 Months E03.9 - Hypothyroidism, unspecified, E11.9 - Type 2 diabetes mellitus without complications, E78.5 - Hyperlipidemia, unspecified, Z00.00 - Encounter for general adult medical examination without abnormal findings Referrals Gastroenterology Referral E03.9 - Hypothyroidism, unspecified, E11.9 - Type 2 diabetes mellitus without complications, E78.5 - Hyperlipidemia, unspecified, Z00.00 - Encounter for general adult medical examination without abnormal findings Medications: Refilled simvastatin 10 mg PO DAILY 90 tabs 3RF
== END 2024-04-24 10:13 | disposition home or self-care (01) ==
PROVIDERS: PCP Internal Medicine; Visit Provider Internal Medicine
DX: Z00.00 Encounter for general adult medical examination without abnormal findings (principal); E11.9 Type 2 diabetes mellitus without complications; E03.9 Hypothyroidism, unspecified; E78.5 Hyperlipidemia, unspecified

== ENCOUNTER → 2024-04-24 08:30 | Outpatient (BNVA) | payer OTHER, SELFPAY | PROVIDERS: PCP Internal Medicine; Visit Provider Internal Medicine | DX: Z00.00 Encounter for general adult medical examination without abnormal findings (principal); E11.9 Type 2 diabetes mellitus without complications; E03.9 Hypothyroidism, unspecified; E78.5 Hyperlipidemia, unspecified; Z79.899 Other long term (current) drug therapy | CPT/HCPCS: 96127 ==

== ENCOUNTER 2024-08-25 07:33 | Outpatient (REF) | payer OTHER, SELFPAY ==
[2024-08-25 10:25] LABS: MANUAL DIFF FLAG NO
[2024-08-25 10:33] LABS: Basophils Percent Auto 0.8 % (0-2); Eosinophils Absolute Auto 0.2 X10*3/uL (0.0-0.4); Eosinophils Percent Auto 4.1 % (0-4); Hematocrit 42.6 % (42.0-52.0); Hemoglobin 14.3 g/dl (14.0-18.0); Imm Gran Abs Auto 0.01 X10*3/uL (0.00-0.03); Imm Gran Pct Auto 0.2 % (0.0-0.4); Lymphocytes Absolute Auto 1.4 X10*3/uL (1.2-4.9); Lymphocytes Percent Auto 28.2 % (20-40); Mean Corpuscular HGB Conc 33.6 g/dl (31.0-36.0); Mean Corpuscular Volume 92.4 fL (80.0-98.0); Mean Platelet Volume 10.6 fL (9.4-12.4); Monocytes Absolute Auto 0.3 X10*3/uL (0.1-1.2); Monocytes Percent Auto 5.6 % (2-11); Neutrophils Percent Auto 61.1 % (45-73); Platelet Count 210 X10*3/uL (160-400); Red Blood Count 4.61 X10*6/uL (4.60-5.80); Red Cell Distribution Width 12.1 % (11.0-16.0); White Blood Count 4.9 X10*3/uL (4.8-10.8)
[2024-08-25 10:43] LABS: Alanine Aminotransferase 36 U/L (0-40); Albumin Level 4.5 g/dL (3.5-5.0); Alkaline Phosphatase 28 U/L (39-117); Anion Gap 9 (12-20); Aspartate Amino Transferase 20 U/L (5-37); Bilirubin Total 0.5 mg/dL (0.0-1.0); Blood Urea Nitrogen 23 mg/dL (9-16); Calcium 9.2 mg/dL (8.4-10.2); Carbon Dioxide 25 mmol/L (22-29); Chloride 107 mmol/L (96-108); Cholesterol 163 mg/dL (<200); Estimated Glomerular Filt Rate > 60; Glucose Fasting 167 mg/dL (60-99); HDL Cholesterol 73 mg/dL (>40); LDL Cholesterol Calculated 73 mg/dL (<100); Potassium 4.3 mmol/L (3.3-5.1); Sodium 137 mmol/L (135-145); Total Protein 7.3 g/dL (6.5-8.0); Triglycerides 87 mg/dL (<150)
[2024-08-25 11:13] LABS: Estimated Average Glucose 146 mg/dL; Hemoglobin A1C 191.6084 umol/L; Hemoglobin A1c % 6.7 % (<6.0); Total Hemoglobin (HGBA1C) 3816.7521 umol/L
[2024-08-25 12:14] LABS: Creatinine Urine 48.72 mg/dL; Microalbumin Urine < 5.0 mg/L
== END 2024-08-25 07:34 | disposition home or self-care (01) ==
LOC: HO.HMGCLDS 07:33
PROVIDERS: PCP Internal Medicine; Visit Provider Internal Medicine
DX: Z00.00 Encounter for general adult medical examination without abnormal findings (principal); E11.9 Type 2 diabetes mellitus without complications; E03.9 Hypothyroidism, unspecified; E78.5 Hyperlipidemia, unspecified
CPT/HCPCS: 36415; 80053; 80061; 82043; 82570; 83036; 85025

== ENCOUNTER 2024-08-26 07:57 | Outpatient (AMB) | payer OTHER, SELFPAY ==
[2024-08-26 08:07] VITALS: BP 118/76; PULSE 67; RESP 18; TEMP 36.7; O2SAT 97; BMI 25.8
--- NOTE | 2024-08-26 08:07 | MHC.PC.OV ---
Vital Signs 08/26/24 08:07 Height 5 ft 7 in Weight 165 lb BMI 25.8 BP 118/76 Blood Pressure Location Rt brachial Position Sitting Respiration 18 Pulse 67 Pulse Source Pulse Oximeter Temp 98.0 F Temp Source Oral Pulse Oximetry (%) 97 Oxygen Delivery Method Room Air Intake Visit Reasons: follow up Intake Note: Pt is here today for follow up visit on labs. [facility]ies [facility] Adverse Reaction (Verified 08/26/24 08:11) weight loss Medication List - Last Reconciled 08/26/24 by Tea Fernandes MD BD Ultra-Fine Cleo Pen Needle (pen needle, diabetic) As directed to inject insulin once a day NS blood-glucose sensor ([place] G7 Sensor device) As directed, change every 10 days Contour Test Strips (blood sugar diagnostic) test blood sugar twice a day NS dapagliflozin propanediol (Farxiga) 10 mg PO DAILY FreeStyle Molly 3 Sensor (blood-glucose sensor) 1 TID NS Lantus Solostar U-100 Insulin (insulin glargine) 18 units (0.18 mL) subcut QPM NS levothyroxine 175 mcg PO DAILY metformin 500 mg PO BID multivitamin 1 tab PO DAILY simvastatin 10 mg PO DAILY Tobacco use date assessed: 08/26/24 Dental Screening Dental Screen Date: 08/26/24 Did you have a dental visit in the last 12 months?: Yes Did you have a dental problem in the last 6 months where you did not have access to dental care?: No Was dental information given to patient?: Patient has dentist HPI follow up HPI Details Pt presents for f/u IDDM, hypothyroid, stable on meds. Patient has been less physically active during the winter and skipping breakfasts [facility] Medical History Medial meniscus tear Left knee injury DM type 2 (diabetes mellitus, type 2) Annual physical exam Knee pain Dyslipidemia Hypothyroidism Surgical History History of tooth extraction Family History Father Diabetes mellitus Mother Medical history non-contributory Brother No problems noted. Sister No problems noted. Daughter No problems noted. Daughter No problems noted. Social History Housing: House Alcohol intake: current Alcohol intake frequency: a few times a month Patient Tobacco Use Status: Current everyday Tobacco user Cigarettes Per Day: 8 Years Smoked: 20 e-Cigarette/Vaping Use: Never Used service: No Current occupational status: employed Current occupation: Rt handed Cognitive needs: No Hearing needs: No Vision needs: No Questionnaire PHQ-9 Over the last 2 weeks, how often have you been bothered by any of the following problems? 1. Little interest or pleasure in doing things: not at all 2. Feeling down, depressed, or hopeless: not at all 3. Trouble falling or staying asleep, or sleeping too much: not at all 4. Feeling tired or having little energy: not at all 5. Poor appetite or overeating: not at all 6. Feeling bad about yourself - or that you are a failure or have let yourself or your family down: not at all 7. Trouble concentrating on things, such as reading the newspaper or watching television: not at all 8. Moving or speaking so slowly that other people could have noticed. Or the opposite - being so fidgety or restless that you have been moving around a lot more than usual: not at all 9. Thoughts that you would be better off or of hurting yourself in some way: not at all Total score: 0 Depression Screening Interpretation: Negative Depression Screening Done: Yes 10517 - PHQ-9 Billing: Yes Source: Developed by Drs. Se Hsieh, Whitley Hernandez, Berny Shelton and colleagues, with an educational christy from [employer]. Thrive Questionnaire Date Thrive assessed: 08/26/24 I am a: Patient What is your living situation today?: I choose not to answer this question Within the past 12 months, did the food you bought not last and you didn't have the money to get more?: I choose not to answer this question Within the past 12 months, did you worry whether your food would run out before you got money to buy more?: I choose not to answer this question Do you have trouble paying for medicines?: I choose not to answer this question Do you have trouble getting transportation to medical appointments?: I choose not to answer this question Do you have trouble paying your heating and electricity bill?: I choose not to answer this question Do you have trouble taking care of your child, family member or friend?: I choose not to answer this question Do you have trouble with day-to-day activities such as bathing, preparing meals, shopping, managing finances, etc.?: I choose not to answer this question Are you currently unemployed and looking for a job?: I choose not to answer this question Are you interested in more education?: I choose not to answer this question Please select the resources that you would like help with: None Currently or been in a relationship where the following occur: I choose not to answer THRIVE Score: 0 AUDIT C Alcohol Use Questionnaire (AUDIT-C) 1. How often do you have a drink containing alcohol?: 2-4 times a month 2. How many drinks containing alcohol do you have on a typical day when you are drinking?: 3 or 4 3. How often do you have six or more drinks on one occasion?: Never Total Score: 3 DICKSON-7 AMB Questionnaire DICKSON-7 Date DICKSON - 7 assessed: 08/26/24 Feeling nervous, anxious, or on edge: 0 = Not at all Not being able to stop or control worryin = Not at all Worrying too much about different things: 0 = Not at all Trouble relaxin = Not at all Being so restless that it is hard to sit still: 0 = Not at all Becoming easily annoyed or irritable: 0 = Not at all Feeling afraid as if something awful might happen: 0 = Not at all Total DICKSON-7 score (0-4 normal; 5-9 mild; 10-14 moderate; 15-21 severe): 0 Source: Developed by Drs. Se Hsieh, Whitley Hernandez, Berny Shelton and colleagues, with an educational christy from [employer]. DICKSON-7 Assessment Billing DICKSON-7 Assessment Tool: DICKSON-7 Assessment 10881 Review of Systems Const All systems reviewed & are unremarkable except as noted in HPI and below Eyes Reports no additional complaints ENT Reports no additional complaints Card Reports no additional complaints Resp Reports no additional complaints GI Reports no additional complaints Reports no additional complaints Physical exam (Primary Care) Vital Signs: Last Vital Signs Temp 98.0 F 08/26/24 08:07 Pulse 67 08/26/24 08:07 Resp 18 02/04/25 08:07 BP 118/76 08/26/24 08:07 Pulse Ox 97 08/26/24 08:07 Oxygen Delivery Method Room Air 08/26/24 08:07 BMI result Body Mass Index 25.8 Tobacco/Smoking Status: Tobacco use Status Tobacco use date assessed 08/26/24 08/26/24 08:15 Patient Tobacco Use Status Current everyday Tobacco 08/26/24 08:15 e-Cigarette/Vaping Use Never Used 08/26/24 08:15 PHQ-9: PHQ-9 Score PHQ-9: Total score 0 08/26/24 08:15 Depression Screening Interpretation: Negative Thrive Assessment: Date of Thrive Assessment Date Thrive assessed 08/26/24 08/26/24 08:15 Currently or been in a relationship where the following occur: I choose not to answer Const General: no acute distress HENMT Head: Yes normal to inspection Mouth: Normal oral and palatal mucosa present Eyes General: appearance normal, both eyes and all related structures Neck Neck: Yes no lymphadenopathy and Yes supple Resp Effort & Inspection: normal respiratory effort Auscultation: clear to auscultation bilaterally Cardio Rhythm: regular rhythm Heart sounds: S1 normal heart sound present and S2 normal heart sound present GI Inspection: Yes normal to inspection Palpation (GI): Soft to palpation Percussion: Yes normal to percussion Auscultation: normal bowel sounds Coding Level of Care Code Est Pt Level 4 (76985) Diagnoses Hypothyroidism E03.9 DM type 2 (diabetes mellitus, type 2) E11.9 Dyslipidemia E78.5 Additional Codes DICKSON-7 Assessment Billing - DICKSON-7 Assessment Tool: DICKSON-7 Assessment 44902 ([id number]) PHQ-9 - 60337 - PHQ-9 Billing: Yes ([id number]) Assessment & Plan Assessment & Plan (1) Hypothyroidism: Comment: s/p partial thyroidectomy for thyroid nodule in 20's Code(s): E03.9 - Hypothyroidism, unspecified Category: Medical Plan: Continue levothyroxine (2) DM type 2 (diabetes mellitus, type 2): Comment: Trulicity caused weight loss and nausea Code(s): E11.9 - Type 2 diabetes mellitus without complications Category: Medical Plan: A1c is 6.7, ADA diet increase exercise discussed with the patient. Continue current treatment follow-up in 3 months with a fasting labs before (3) Dyslipidemia: Code(s): E78.5 - Hyperlipidemia, unspecified Category: Medical Plan: Continue statin Orders: Orders Complete Blood Count Auto Diff 3 Months E03.9 - Hypothyroidism, unspecified, E11.9 - Type 2 diabetes mellitus without complications Hemoglobin A1c 3 Months E03.9 - Hypothyroidism, unspecified, E11.9 - Type 2 diabetes mellitus without complications TSH reflex Free T4 3 Months E03.9 - Hypothyroidism, unspecified Comprehensive [place]. Panel Fast 3 Months E03.9 - Hypothyroidism, unspecified, E11.9 - Type 2 diabetes mellitus without complications Microalbumin, Random (w Creat) 3 Months E03.9 - Hypothyroidism, unspecified, E11.9 - Type 2 diabetes mellitus without complications Lipid Panel 3 Months E03.9 - Hypothyroidism, unspecified, E11.9 - Type 2 diabetes mellitus without complications Referrals Gastroenterology Referral E03.9 - Hypothyroidism, unspecified, E11.9 - Type 2 diabetes mellitus without complications, Z00.00 - Encounter for general adult medical examination without abnormal findings
== END 2024-08-26 09:17 | disposition home or self-care (01) ==
PROVIDERS: PCP Internal Medicine; Visit Provider Internal Medicine
DX: E03.9 Hypothyroidism, unspecified (principal); E11.9 Type 2 diabetes mellitus without complications; E78.5 Hyperlipidemia, unspecified

== ENCOUNTER → 2024-08-26 07:57 | Outpatient (BNVA) | payer OTHER, SELFPAY | PROVIDERS: PCP Internal Medicine; Visit Provider Internal Medicine | DX: E03.9 Hypothyroidism, unspecified (principal); E11.9 Type 2 diabetes mellitus without complications; E78.5 Hyperlipidemia, unspecified; Z79.899 Other long term (current) drug therapy | CPT/HCPCS: 96127 ==

== ENCOUNTER 2024-10-29 09:45 | Outpatient (AMB) | payer OTHER, SELFPAY ==
[2024-10-29 09:48] VITALS: BP 116/78; PULSE 68; RESP 18; TEMP 36.4; O2SAT 97; BMI 24.4
--- NOTE | 2024-10-29 09:48 | MHC.PC.OV ---
Vital Signs 10/29/24 09:48 Height 5 ft 7 in Weight 156 lb BMI 24.4 BP 116/78 Blood Pressure Location Rt brachial Position Sitting Respiration 18 Pulse 68 Pulse Source Pulse Oximeter Temp 97.5 F Temp Source Oral Pulse Oximetry (%) 97 Oxygen Delivery Method Room Air Intake Visit Reasons: Follow up Intake Note: Pt is here today for a sick visit. Pt states that he is loosing weight. Allergies dulaglutide [From [facility]] Adverse Reaction (Verified 10/29/24 09:48) weight loss Medication List - Last Reconciled 10/29/24 by Tea Fernandes MD BD Ultra-Fine Cleo Pen Needle (pen needle, diabetic) As directed to inject insulin once a day NS blood-glucose sensor ([employer] G7 Sensor device) As directed, change every 10 days Contour Test Strips (blood sugar diagnostic) test blood sugar twice a day NS dapagliflozin propanediol (Farxiga) 10 mg PO DAILY FreeStyle Molly 3 Sensor (blood-glucose sensor) 1 TID NS Lantus Solostar U-100 Insulin (insulin glargine) 18 units (0.18 mL) subcut QPM NS levothyroxine 175 mcg PO DAILY metformin 500 mg PO BID multivitamin 1 tab PO DAILY simvastatin 10 mg PO DAILY Tobacco use date assessed: 10/29/24 Dental Screening Dental Screen Date: 08/26/24 HPI Follow up HPI Details Patient presents for the follow-up of insulin-dependent diabetes. He reports fluctuating blood glucose readings low to 50s when working physically and not eating regularly and high readings on weekends after eating dinner up to 150. He lost 10 lb in 2 months. Patient denies polyuria polydipsia increase sweating [facility] Medical History Medial meniscus tear Left knee injury DM type 2 (diabetes mellitus, type 2) Annual physical exam Knee pain Dyslipidemia Hypothyroidism Surgical History History of tooth extraction Family History Father Diabetes mellitus Mother Medical history non-contributory Brother No problems noted. Sister No problems noted. Daughter No problems noted. Daughter No problems noted. Social History Housing: House Alcohol intake: current Alcohol intake frequency: a few times a month Patient Tobacco Use Status: Current everyday Tobacco user Cigarettes Per Day: 8 Years Smoked: 20 Packs per year/per ci.00 e-Cigarette/Vaping Use: Never Used service: No Current occupational status: employed Current occupation: [employer] Cognitive needs: No Hearing needs: No Vision needs: No Questionnaire Thrive Questionnaire Date Thrive assessed: 08/26/24 I am a: Patient What is your living situation today?: I choose not to answer this question Within the past 12 months, did the food you bought not last and you didn't have the money to get more?: I choose not to answer this question Within the past 12 months, did you worry whether your food would run out before you got money to buy more?: I choose not to answer this question Do you have trouble paying for medicines?: I choose not to answer this question Do you have trouble getting transportation to medical appointments?: I choose not to answer this question Do you have trouble paying your heating and electricity bill?: I choose not to answer this question Do you have trouble taking care of your child, family member or friend?: I choose not to answer this question Do you have trouble with day-to-day activities such as bathing, preparing meals, shopping, managing finances, etc.?: I choose not to answer this question Are you currently unemployed and looking for a job?: I choose not to answer this question Are you interested in more education?: I choose not to answer this question Please select the resources that you would like help with: None Currently or been in a relationship where the following occur: I choose not to answer THRIVE Score: 0 DICKSON-7 AMB Questionnaire DICKSON-7 Date DICKSON - 7 assessed: 08/26/24 Source: Developed by Drs. Se Hsieh, Whitley Hernandez, Berny Shelton and colleagues, with an educational christy from [email or web address]. Review of Systems Const All systems reviewed & are unremarkable except as noted in HPI and below Eyes Reports no additional complaints ENT Reports no additional complaints Card Reports no additional complaints Resp Reports no additional complaints GI Reports no additional complaints Reports no additional complaints Physical exam (Primary Care) Vital Signs: Last Vital Signs Temp 97.5 F 10/29/24 09:48 Pulse 68 10/29/24 09:48 Resp 18 10/29/24 09:48 BP 116/78 10/29/24 09:48 Pulse Ox 97 10/29/24 09:48 Oxygen Delivery Method Room Air 10/29/24 09:48 BMI result Body Mass Index 24.4 Tobacco/Smoking Status: Tobacco use Status Tobacco use date assessed 10/29/24 10/29/24 09:50 Patient Tobacco Use Status Current everyday Tobacco 10/29/24 09:50 e-Cigarette/Vaping Use Never Used 10/29/24 09:50 Thrive Assessment: Date of Thrive Assessment Date Thrive assessed 08/26/24 10/29/24 09:50 Currently or been in a relationship where the following occur: I choose not to answer Const General: no acute distress Eyes General: appearance normal, both eyes and all related structures Neck Neck: Yes supple Resp Effort & Inspection: normal respiratory effort Auscultation: clear to auscultation bilaterally Cardio Rhythm: regular rhythm Heart sounds: S1 normal heart sound present and S2 normal heart sound present Results AMB Hemoglobin A1c AMB Hemoglobin A1c 7.1 % Last Edit by Casper Nuñez CMA on 10/29/24 10:37 Results Reviewed Results Reviewed: Laboratory Last Values Hgb A1c (Clinic) 7.1 % (4.0-6.0) H 10/29/24 10:36 Coding Level of Care Code Est Pt Level 4 (01154) Diagnoses Hypothyroidism E03.9 DM type 2 (diabetes mellitus, type 2) E11.9 Assessment & Plan Assessment & Plan (1) Hypothyroidism: Comment: s/p partial thyroidectomy for thyroid nodule in ' Code(s): E03.9 - Hypothyroidism, unspecified Category: Medical Plan: Check TSH continue levothyroxine (2) DM type 2 (diabetes mellitus, type 2): Comment: Trulicity caused weight loss and nausea Code(s): E11.9 - Type 2 diabetes mellitus without complications Category: Medical Plan: A1c is 7.1 today. For fluctuating blood glucose ADA diet eating 3 meals a day with snacks in between discussed with the patient. He will decrease metformin to 500 mg once a day and increase Lantus to 24 units. Patient was advised to increase caloric intake but avoid carbohydrates. He will follow-up in 1 month Orders: Orders UA w Microscopic Today E03.9 - Hypothyroidism, unspecified, E11.9 - Type 2 diabetes mellitus without complications, E78.5 - Hyperlipidemia, unspecified TSH reflex Free T4 Today E03.9 - Hypothyroidism, unspecified, E78.5 - Hyperlipidemia, unspecified Complete Blood Count Auto Diff Today E03.9 - Hypothyroidism, unspecified, E78.5 - Hyperlipidemia, unspecified Comprehensive Met. Panel Today E03.9 - Hypothyroidism, unspecified, E11.9 - Type 2 diabetes mellitus without complications, E78.5 - Hyperlipidemia, unspecified AMB Hemoglobin A1c Today Z13.9 - Encounter for screening, unspecified Medications: Changed From metformin 500 mg PO BID 90 tabs 3RF To metformin 500 mg PO .QD 90 tabs 3RF Refilled metformin 500 mg PO BID 90 tabs 3RF
== END 2024-10-29 11:36 | disposition home or self-care (01) ==
LOC: HO.HMCC 09:47
PROVIDERS: PCP Internal Medicine; Visit Provider Internal Medicine
DX: E03.9 Hypothyroidism, unspecified (principal); E11.9 Type 2 diabetes mellitus without complications; Z13.9 Encounter for screening, unspecified

== ENCOUNTER → 2024-10-29 09:45 | Outpatient (BNVA) | payer OTHER, SELFPAY | PROVIDERS: PCP Internal Medicine; Visit Provider Internal Medicine | DX: E11.9 Type 2 diabetes mellitus without complications (principal); E03.9 Hypothyroidism, unspecified; Z79.84 Long term (current) use of oral hypoglycemic drugs | CPT/HCPCS: 83036 ==

== ENCOUNTER 2024-11-07 07:44 | Outpatient (REF) | payer OTHER, SELFPAY ==
[2024-11-07 09:57] LABS: Appearance Urine Clear; Color Urine Yellow; Glucose Urine UA >=1000 mg/dL (Negative); Leukocyte Esterase Urine Negative (Negative); Nitrite Urine Negative (Negative); PH 5.5 (5.0-9.0); Specific Gravity - Urine >= 1.030 (1.005-1.025); UMIC TRIGGER UA YES; Urine Blood Negative (Negative); Urine Ketones Negative (Negative); Urine Protein Negative (Neg-Trace)
[2024-11-07 10:01] LABS: MANUAL DIFF FLAG NO
[2024-11-07 10:04] LABS: Basophils Percent Auto 0.8 % (0-2); Eosinophils Absolute Auto 0.1 X10*3/uL (0.0-0.4); Eosinophils Percent Auto 2.5 % (0-4); Hematocrit 42.9 % (42.0-52.0); Hemoglobin 14.3 g/dl (14.0-18.0); Imm Gran Abs Auto 0.02 X10*3/uL (0.00-0.03); Imm Gran Pct Auto 0.4 % (0.0-0.4); Lymphocytes Absolute Auto 1.5 X10*3/uL (1.2-4.9); Lymphocytes Percent Auto 29.3 % (20-40); Mean Corpuscular HGB Conc 33.3 g/dl (31.0-36.0); Mean Corpuscular Hemoglobin 31.1 pg (27.0-33.0); Mean Corpuscular Volume 93.3 fL (80.0-98.0); Mean Platelet Volume 10.8 fL (9.4-12.4); Monocytes Absolute Auto 0.4 X10*3/uL (0.1-1.2); Monocytes Percent Auto 7.3 % (2-11); Neutrophils Absolute Auto 3.1 x10*3/uL (2.0-8.3); Neutrophils Percent Auto 59.7 % (45-73); Platelet Count 239 X10*3/uL (160-400); Red Cell Distribution Width 12.7 % (11.0-16.0); White Blood Count 5.2 X10*3/uL (4.8-10.8)
[2024-11-07 10:04] LABS: Bacteria Urine None Seen (None Seen); Hyaline Casts Urine 0-2 /LPF (0-2); RBC Urine 0-2 /HPF (0-2); Squamous Epithelial Cell Urine 0-2 /HPF (0-2); WBC Urine 0-5 /HPF (0-5)
[2024-11-07 10:14] LABS: Estimated Average Glucose 146 mg/dL; Hemoglobin A1C 185.7836 umol/L; Hemoglobin A1c % 6.7 % (<6.0); Total Hemoglobin (HGBA1C) 3754.2244 umol/L
[2024-11-07 10:42] LABS: Alanine Aminotransferase 321 U/L (0-40); Albumin Level 4.3 g/dL (3.5-5.0); Anion Gap 12 (12-20); Aspartate Amino Transferase 32 U/L (5-37); Bilirubin Total 0.8 mg/dL (0.0-1.0); Blood Urea Nitrogen 28 mg/dL (9-16); Calcium 9.5 mg/dL (8.4-10.2); Carbon Dioxide 26 mmol/L (22-29); Chloride 106 mmol/L (96-108); Cholesterol 157 mg/dL (<200); Estimated Glomerular Filt Rate > 60; Glucose Fasting 134 mg/dL (60-99); HDL Cholesterol 70 mg/dL (>40); LDL Cholesterol Calculated 74 mg/dL (<100); Potassium 4.3 mmol/L (3.3-5.1); Sodium 140 mmol/L (135-145); Total Protein 6.8 g/dL (6.5-8.0); Triglycerides 67 mg/dL (<150)
[2024-11-07 10:42] LABS: Creatinine Urine 72.03 mg/dL; Microalbumin Urine < 5.0 mg/L
[2024-11-07 10:52] LABS: TSH reflex Free T4 0.16 uIU/mL (0.32-4.0)
[2024-11-07 19:43] LABS: Alkaline Phosphatase 40 U/L (39-117)
== END 2024-11-07 07:45 | disposition home or self-care (01) ==
LOC: HO.HMGCLDS 07:44
PROVIDERS: PCP Internal Medicine; Visit Provider Internal Medicine
DX: E03.9 Hypothyroidism, unspecified (principal); E11.9 Type 2 diabetes mellitus without complications; E78.5 Hyperlipidemia, unspecified
CPT/HCPCS: 36415; 80053; 80061; 81001; 82043; 82570; 83036; 84439; 84443; 85025

== ENCOUNTER 2024-11-28 14:25 | Outpatient (AMB) | payer OTHER, SELFPAY ==
--- NOTE | 2024-11-28 14:33 | A.OFFVIS_ITS ---
Vital Signs 11/28/24 14:34 Height 5 ft 7 in Weight 156 lb BMI 24.4 BP 108/76 Blood Pressure Location Rt brachial Position Sitting Pulse 68 Pulse Source Pulse Oximeter Pulse Oximetry (%) 98 Oxygen Delivery Method Room Air Intake Visit Reasons: Type 2 diabetes mellitus,Hyperthyroidism Intake Note: NEW PATIENT for initial eval / colo screening. Pt last had labs per PCP 11/07/24 CC; Pt denies any GI sx or concerns at this time. Transplant Coordinator Required: No Accompanied by: Self / Same As Patient Allergies No Known Allergies Allergy (Verified 11/28/24 14:40) HPI HPI Type 2 diabetes mellitus,Hyperthyroidism: Details: 44 year old? male with past medical history of diabetes, hyperthyroidism, hyperlipidemia is here today for pre colonoscopy screening.? Patient was sent to us by his PCP.? This is his first colonoscopy screening.? Patient denies any gastrointestinal symptoms in the past or at present.? Denies any personal or family history of gastrointestinal disease, colon polyps, or CRC.? Denies history of difficulty with sedation or anesthesia in the past.? Negative for history of sleep apnea.? Denies any history of cardiac, renal, pulmonary, or hepatic disease.?? History of hepatitis as a child. Patient is not on any anticoagulation [facility] Medical History Medial meniscus tear Left knee injury DM type 2 (diabetes mellitus, type 2) Annual physical exam Knee pain Dyslipidemia Hypothyroidism Surgical History History of tooth extraction Family History Father Diabetes mellitus Mother Medical history non-contributory Brother No problems noted. Sister No problems noted. Daughter No problems noted. Daughter No problems noted. Social History Housing: House Alcohol intake: current Alcohol intake frequency: a few times a month Patient Tobacco Use Status: Current everyday Tobacco user Cigarettes Per Day: 8 Years Smoked: 20 e-Cigarette/Vaping Use: Never Used service: No Current occupational status: employed Current occupation: [employer] Cognitive needs: No Hearing needs: No Vision needs: No Review of Systems Const Denies weight gain and Denies weight loss ENT Reports no additional complaints, Denies dysphagia and Denies odynophagia Card Reports no additional complaints Resp Reports no additional complaints GI Denies abdominal pain, Denies belching, Denies melena, Denies bloating, Denies change in bowel habits, Denies dysphagia, Denies excessive flatus, Denies dyspepsia, Denies heartburn, Denies diarrhea, Denies loose stools, Denies nausea, Denies odynophagia and Denies vomiting Reports no additional complaints Musc Reports no additional complaints Neuro Reports no additional complaints Psych Reports no additional complaints Endo Reports no additional complaints Physical Exam Vital Signs: Last Vital Signs Pulse 68 11/28/24 14:34 BP 108/76 11/28/24 14:34 Pulse Ox 98 11/28/24 14:34 Oxygen Delivery Method Room Air 11/28/24 14:34 BMI result Body Mass Index 24.4 Const General: healthy appearing, no acute distress and well developed Nutritional Appearance: well nourished Orientation/consciousness: patient oriented x3 Resp Effort & Inspection: normal respiratory effort, able to speak in complete sentences, no tracheal deviation and symmetric chest movement Auscultation: clear to auscultation bilaterally Cardio Rate: regular rate GI Inspection: Yes normal to inspection and No distended Palpation (GI): Soft to palpation, not firm, nontender and No hepatosplenomegaly present Auscultation: normal bowel sounds General: Yes no CVA tenderness Back/Spine/Pelvis Back: no CVA tenderness Skin General skin exam: elasticity normal, turgor normal and dry skin Neuro General: patient oriented x3 Psych Appearance: grossly normal Mental Status: mental status grossly normal Assessment & Plan Assessment & Plan (1) Screen for colon cancer: Code(s): Z12.11 - Encounter for screening for malignant neoplasm of colon Plan Patient denies any GI, cardiac or respiratory symptoms.? Denies any issues with anesthesia in the past.? Denies any history of sleep apnea.? Patient reports history of hepatitis as a child hospitalized. Patient reports that most of his classmates at that time were hospitalized.? Patient liver enzymes elevated. We will recheck his liver enzymes after colonoscopy again. PCP ordered workup. Patient is diabetic and is taking Lantus. Encouraged him to take half of the Linzess dose 2 nights and 1 night before the procedure. Not on any anticoagulation therapy.? No family or personal history of colon cancer or polyps.? Patient denies melena, hematochezia, unintentional weight loss or ribbon like stools.? Discussed at length the pre-procedure,? prep, diet & medications as well as what to expect prior, during and after the procedure.?? Stressed the importance of good bowel prep.? Recommended the use of Vaseline or Calmoseptine OTC & baby wipes with bowel movements to promote comfort.? ?Patient verbalizes understanding and agrees to plan of care.? He was given the opportunity to ask questions and all questions answered.? We will see him after the procedure.? Medications: New bisacodyl (Dulcolax (bisacodyl)) take 4 tabs at noon the day before your colonoscopy 20 mg (4 x 5 mg) PO ONCE 4 tabs 0RF 1 day Z12.11 - Encounter for screening for malignant neoplasm of colon polyethylene glycol 3350 (Miralax) As directed by gastro[facility]ology [facility] at [facility] 238 grams PO ONCE 238 grams 0RF Z12.11 - Encounter for screening for malignant fritz plasm of colon Coding Level of Care Code New Pt Level 3 (31526) Diagnoses Screen for colon cancer Z12.11 Time Spent (min) 40 Comment 30 minutes spent with patient and additional 10 minute spent reviewing his records
[2024-11-28 14:34] VITALS: BP 108/76; PULSE 68; O2SAT 98; BMI 24.4
== END 2024-11-28 16:26 | disposition home or self-care (01) ==
LOC: HO.HGI 14:26
PROVIDERS: PCP Internal Medicine; Visit Provider Nurse Practitioner Family
DX: Z01.818 Encounter for other preprocedural examination (principal); Z12.11 Encounter for screening for malignant neoplasm of colon
CPT/HCPCS: S0285

== ENCOUNTER 2024-11-28 14:25 | Outpatient (REF) | payer OTHER, SELFPAY ==
[2024-11-28 15:57] LABS: MANUAL DIFF FLAG NO
[2024-11-28 16:29] LABS: Basophils Absolute Auto 0.1 X10*3/uL (0.0-0.2); Basophils Percent Auto 0.8 % (0-2); Eosinophils Absolute Auto 0.1 X10*3/uL (0.0-0.4); Eosinophils Percent Auto 1.4 % (0-4); Hematocrit 43.9 % (42.0-52.0); Hemoglobin 14.6 g/dl (14.0-18.0); Imm Gran Abs Auto 0.01 X10*3/uL (0.00-0.03); Imm Gran Pct Auto 0.2 % (0.0-0.4); Lymphocytes Absolute Auto 1.8 X10*3/uL (1.2-4.9); Lymphocytes Percent Auto 27.5 % (20-40); Mean Corpuscular HGB Conc 33.3 g/dl (31.0-36.0); Mean Corpuscular Volume 93.2 fL (80.0-98.0); Mean Platelet Volume 9.9 fL (9.4-12.4); Monocytes Absolute Auto 0.5 X10*3/uL (0.1-1.2); Monocytes Percent Auto 6.8 % (2-11); Neutrophils Absolute Auto 4.2 x10*3/uL (2.0-8.3); Neutrophils Percent Auto 63.3 % (45-73); Platelet Count 208 X10*3/uL (160-400); Red Blood Count 4.71 X10*6/uL (4.60-5.80); Red Cell Distribution Width 12.7 % (11.0-16.0); White Blood Count 6.6 X10*3/uL (4.8-10.8)
[2024-11-28 18:33] LABS: Alanine Aminotransferase 44 U/L (0-40); Albumin Level 4.7 g/dL (3.5-5.0); Alkaline Phosphatase 40 U/L (39-117); Aspartate Amino Transferase 26 U/L (5-37); Bilirubin Direct 0.2 mg/dL (0.0-0.5); Bilirubin Total 0.6 mg/dL (0.0-1.0); Total Protein 7.3 g/dL (6.5-8.0)
[2024-11-28 18:52] LABS: TSH reflex Free T4 0.29 uIU/mL (0.32-4.0)
[2024-11-28 20:08] LABS: Free T4 (Free Thyroxine) 1.29 ng/dL (0.71-1.85)
[2024-11-29 04:04] LABS: HBS Num1 108.98 mIU/mL (0-7.99); HBc Num1 0.04 S/CO (0.00-0.79); HBsAGNum1 0.23 S/CO (0.00-0.99); Hepatitis B Core Antibody Nonreactive (Nonreactive); Hepatitis B Surface Antigen Negative (Negative); ~HepC Num1 0.06 S/CO (0.00-0.79); ~Hepatitis B Surface Antibody REACTIVE (Nonreactive); ~Hepatitis C Antibody Nonreactive (Nonreactive)
== END 2024-11-28 14:26 | disposition home or self-care (01) ==
LOC: HO.LAB 14:25
PROVIDERS: PCP Internal Medicine; Visit Provider Internal Medicine
DX: Z12.11 Encounter for screening for malignant neoplasm of colon (principal); E11.9 Type 2 diabetes mellitus without complications; E03.9 Hypothyroidism, unspecified; R74.01 Elevation of levels of liver transaminase levels
CPT/HCPCS: 36415; 80076; 84439; 84443; 85025; 86704; 86706; 86803; 87340

== ENCOUNTER 2025-05-12 07:58 | Outpatient (REF) | payer OTHER, SELFPAY ==
[2025-05-12 10:40] LABS: MANUAL DIFF FLAG NO
[2025-05-12 10:53] LABS: Hematocrit 43.7 % (42.0-52.0); Hemoglobin 14.5 g/dl (14.0-18.0); Imm Gran Abs Auto 0.01 X10*3/uL (0.00-0.03); Imm Gran Pct Auto 0.1 % (0.0-0.4); Lymphocytes Absolute Auto 1.8 X10*3/uL (1.2-4.9); Mean Corpuscular HGB Conc 33.2 g/dl (31.0-36.0); Mean Corpuscular Hemoglobin 30.1 pg (27.0-33.0); Mean Corpuscular Volume 90.9 fL (80.0-98.0); NRBC Abs Auto 0.000 X10*3/uL (0.0-0.012); NRBC Pct Auto 0.0 /100WBC (0.0-0.2); Platelet Count 243 X10*3/uL (160-400); Red Blood Count 4.81 X10*6/uL (4.60-5.80); White Blood Count 6.9 X10*3/uL (4.8-10.8)
[2025-05-12 13:12] LABS: Alanine Aminotransferase 37 U/L (0-40); Albumin Level 4.3 g/dL (3.5-5.0); Alkaline Phosphatase 36 U/L (39-117); Anion Gap 8 (12-20); Aspartate Amino Transferase 24 U/L (5-37); Blood Urea Nitrogen 24 mg/dL (9-16); Calcium 9.2 mg/dL (8.4-10.2); Carbon Dioxide 29 mmol/L (22-29); Chloride 105 mmol/L (96-108); Cholesterol 165 mg/dL (<200); Estimated Glomerular Filt Rate > 60; HDL Cholesterol 61 mg/dL (>40); Potassium 4.3 mmol/L (3.3-5.1); Sodium 138 mmol/L (135-145); Total Protein 6.9 g/dL (6.5-8.0); Triglycerides 104 mg/dL (<150)
== END 2025-05-12 07:59 | disposition home or self-care (01) ==
LOC: HO.HMGCLDS 07:58
PROVIDERS: PCP Internal Medicine; Visit Provider Internal Medicine
DX: E11.9 Type 2 diabetes mellitus without complications (principal); E03.9 Hypothyroidism, unspecified; E78.5 Hyperlipidemia, unspecified
CPT/HCPCS: 36415; 80053; 80061; 83036; 84443; 84481; 85025

== ENCOUNTER 2025-05-13 08:14 | Outpatient (AMB) | payer OTHER, SELFPAY ==
--- NOTE | 2025-05-13 08:18 | A.OFFPC_ITS ---
Vital Signs 05/13/25 08:20 Height 5 ft 7 in Weight 164 lb BMI 25.7 BP 120/78 Blood Pressure Location Lt brachial Position Sitting Respiration 18 Pulse 82 Pulse Source Pulse Oximeter Temp 97.9 F Temp Source Oral Pulse Oximetry (%) 98 Oxygen Delivery Method Room Air Intake Visit Reasons: Follow up on DM Intake Note: Pt is here today for a follow up visit on DM. Allergies No Known Allergies Allergy (Verified 05/13/25 08:23) Medication List - Last Reconciled 05/13/25 by Tea Fernandes MD BD Ultra-Fine Cleo Pen Needle (pen needle, diabetic) As directed to inject insulin once a day NS bisacodyl (Dulcolax (bisacodyl)) 20 mg (4 x 5 mg) PO ONCE 1 day blood-glucose sensor ([employer] G7 Sensor device) As directed, change every 10 days Contour Test Strips (blood sugar diagnostic) test blood sugar twice a day NS dapagliflozin propanediol (Farxiga) 10 mg PO DAILY FreeStyle Molly 3 Sensor (blood-glucose sensor) 1 TID NS insulin lispro 4 units for glucose 120-150, 6 units 150-200 subcutaneously 3 times a day; Lantus Solostar U-100 Insulin (insulin glargine) 25 units (0.25 mL) subcut QPM NS levothyroxine 175 mcg PO DAILY metformin 500 mg PO BID multivitamin 1 tab PO DAILY pen needle, diabetic Use to inject insulin once a day polyethylene glycol 3350 (Miralax) 238 grams PO ONCE simvastatin 10 mg PO DAILY Tobacco use date assessed: 05/13/25 Dental Screening Dental Screen Date: 08/26/24 HPI Follow up on DM HPI Details Patient presents for the follow-up of type 2 diabetes hypothyroidism and hyperlipidemia. [facility] Medical History Medial meniscus tear Left knee injury DM type 2 (diabetes mellitus, type 2) Annual physical exam Knee pain Dyslipidemia Hypothyroidism Surgical History History of tooth extraction Family History Father Diabetes mellitus Mother Medical history non-contributory Brother No problems noted. Sister No problems noted. Daughter No problems noted. Daughter No problems noted. Social History Housing: House Alcohol intake: current Alcohol intake frequency: a few times a month Patient Tobacco Use Status: Current everyday Tobacco user Cigarettes Per Day: 8 Years Smoked: 20 e-Cigarette/Vaping Use: Never Used service: No Current occupational status: employed Current occupation: [employer] Cognitive needs: No Hearing needs: No Vision needs: No Questionnaire PHQ-9 Over the last 2 weeks, how often have you been bothered by any of the following problems? 1. Little interest or pleasure in doing things: not at all 2. Feeling down, depressed, or hopeless: not at all 3. Trouble falling or staying asleep, or sleeping too much: not at all 4. Feeling tired or having little energy: not at all 5. Poor appetite or overeating: not at all 6. Feeling bad about yourself - or that you are a failure or have let yourself or your family down: not at all 7. Trouble concentrating on things, such as reading the newspaper or watching television: not at all 8. Moving or speaking so slowly that other people could have noticed. Or the opposite - being so fidgety or restless that you have been moving around a lot more than usual: not at all 9. Thoughts that you would be better off or of hurting yourself in some way: not at all Total score: 0 Depression Screening Interpretation: Negative Depression Screening Done: Yes Source: Developed by Drs. Se Hsieh, Whitley Hernandez, Berny Shelton and colleagues, with an educational christy from [employer]. Thrive Questionnaire Date Thrive assessed: 08/26/24 I am a: Patient What is your living situation today?: I choose not to answer this question Within the past 12 months, did the food you bought not last and you didn't have the money to get more?: I choose not to answer this question Within the past 12 months, did you worry whether your food would run out before you got money to buy more?: I choose not to answer this question Do you have trouble paying for medicines?: I choose not to answer this question Do you have trouble getting transportation to medical appointments?: I choose not to answer this question Do you have trouble paying your heating and electricity bill?: I choose not to answer this question Do you have trouble taking care of your child, family member or friend?: I choose not to answer this question Do you have trouble with day-to-day activities such as bathing, preparing meals, shopping, managing finances, etc.?: I choose not to answer this question Are you currently unemployed and looking for a job?: I choose not to answer this question Are you interested in more education?: I choose not to answer this question Please select the resources that you would like help with: None Currently or been in a relationship where the following occur: I choose not to answer THRIVE Score: 0 DICKSON-7 AMB Questionnaire DICKSON-7 Date DICKSON - 7 assessed: 08/26/24 Feeling nervous, anxious, or on edge: 0 = Not at all Not being able to stop or control worryin = Not at all Worrying too much about different things: 0 = Not at all Trouble relaxin = Not at all Being so restless that it is hard to sit still: 0 = Not at all Source: Developed by Drs. Se Hsieh, Whitley Hernandez, Berny Shelton and colleagues, with an educational christy from [employer]. Review of Systems Const All systems reviewed & are unremarkable except as noted in HPI and below ENT Reports no additional complaints Card Reports no additional complaints Resp Reports no additional complaints GI Reports no additional complaints Reports no additional complaints Physical exam (Primary Care) Vital Signs: Last Vital Signs Temp 97.9 F 05/13/25 08:20 Pulse 82 05/13/25 08:20 Resp 18 05/13/25 08:20 BP 120/78 05/13/25 08:20 Pulse Ox 98 05/13/25 08:20 Oxygen Delivery Method Room Air 05/13/25 08:20 BMI result Body Mass Index 25.7 Tobacco/Smoking Status: Tobacco use Status Tobacco use date assessed 05/13/25 05/13/25 08:27 Patient Tobacco Use Status Current everyday Tobacco 05/13/25 08:19 e-Cigarette/Vaping Use Never Used 05/13/25 08:19 PHQ-9: PHQ-9 Score PHQ-9: Total score 0 05/13/25 11:12 Depression Screening Interpretation: Negative Thrive Assessment: Date of Thrive Assessment Date Thrive assessed 08/26/24 05/13/25 08:19 Currently or been in a relationship where the following occur: I choose not to answer Const General: no acute distress HENMT Head: Yes normal to inspection Mouth: Normal oral and palatal mucosa present Eyes General: appearance normal, both eyes and all related structures Resp Effort & Inspection: normal respiratory effort Auscultation: clear to auscultation bilaterally Cardio Rhythm: regular rhythm Heart sounds: S1 normal heart sound present and S2 normal heart sound present GI Inspection: Yes normal to inspection Percussion: Yes normal to percussion Auscultation: normal bowel sounds Coding Level of Care Code Est Pt Level 4 (61975) Diagnoses Hypothyroidism E03.9 DM type 2 (diabetes mellitus, type 2) E11.9 Assessment & Plan Assessment & Plan (1) Hypothyroidism: Comment: s/p partial thyroidectomy for thyroid nodule in ' Code(s): E03.9 - Hypothyroidism, unspecified Category: Medical Plan: Continue levothyroxine (2) DM type 2 (diabetes mellitus, type 2): Comment: Trulicity caused weight loss and nausea Code(s): E11.9 - Type 2 diabetes mellitus without complications Category: Medical Plan: A1c is 6.7. ADA diet increase exercise weight loss discussed with the patient. Short-acting insulin with sliding scale will be added before meals. Patient was advised to monitor his blood glucose 2 hours after meals and at bedtime. He was advised to have a snack before but to prevent nocturnal hypoglycemia. Follow-up in 3 months with a fasting labs before Orders: Orders Comprehensive [place]. Panel Fast 3 Months E03.9 - Hypothyroidism, unspecified, E11.9 - Type 2 diabetes mellitus without complications Hemoglobin A1c 3 Months E03.9 - Hypothyroidism, unspecified, E11.9 - Type 2 diabetes mellitus without complications Lipid Panel 3 Months E03.9 - Hypothyroidism, unspecified, E11.9 - Type 2 diabetes mellitus without complications Microalbumin, Random (w Creat) 3 Months E03.9 - Hypothyroidism, unspecified, E11.9 - Type 2 diabetes mellitus without complications Referrals Cologuard Test Z12.11 - Encounter for screening for malignant neoplasm of colon, Z12.12 - Encounter for screening for malignant neoplasm of rectum Medications: New insulin lispro 4 units for glucose 120-150, 6 units 150-200 subcutaneously 3 times a day; 15 mL 3RF Changed From Lantus Solostar U-100 Insulin (insulin glargine) 18 units (0.18 mL) subcut QPM 15 ea 3RF NS To Lantus Solostar U-100 Insulin (insulin glargine) 25 units (0.25 mL) subcut QPM 15 ea 3RF NS Refilled simvastatin 10 mg PO DAILY 90 tabs 3RF
[2025-05-13 08:20] VITALS: BP 120/78; PULSE 82; RESP 18; TEMP 36.6; O2SAT 98; BMI 25.7
== END 2025-05-13 11:12 | disposition home or self-care (01) ==
LOC: HO.HMCC 08:15
PROVIDERS: PCP Internal Medicine; Visit Provider Internal Medicine
DX: E03.9 Hypothyroidism, unspecified (principal); E11.9 Type 2 diabetes mellitus without complications